=== PATIENT | male | born 1960 | race American Indian/Alaskan Native ===

== ENCOUNTER 2019-02-10 08:17 | Emergency (ER) | payer MEDICAID ==
[2019-02-10 08:38] VITALS: BP 145/77
--- NOTE | 2019-02-10 09:40 | Emergency Department Report ---
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 Patient denies any loss of consciousness after incident and was able to get up. He denies inability to walk. He states that he just moved over this [place] and would like a referral for urology for aches kidney stones, neurologist and family practice. ED Past Medical Hx - Past Medical History Previous Medical History?: Yes Hx Hypertension: Yes Hx Diabetes: Yes Hx Psychiatric Treatment: Yes (anxiety) Additional medical history: high cholesterol. BPH - Surgical History Past Surgical History?: Yes Additional Surgical History: spinal - Social History Smoking Status: Current Every Day Smoker Substance Use Type: Alcohol - Medications Home Medications: Home Medications Medication Instructions Recorded Confirmed Last Taken Type Cyclobenzaprine [Flexeril] 10 mg PO QHS PRN #15 tablet 02/10/19 Unknown Rx Ibuprofen [Motrin] 800 mg PO Q8HR #20 tablet 02/10/19 Unknown Rx Lidocaine [Lidocaine Cream] 1 applic TP BID #4 cream..g. 02/10/19 Unknown Rx ED Review of Systems ROS: Stated complaint: FALL/LOWER BACK PAIN Other details as noted in HPI Comment: All other systems reviewed and negative Physical Exam - Physical Exam Vital Signs: Vital Signs 02/10/19 08:36 Temperature 97.8 F Pulse Rate 76 Respiratory 16 Rate Blood Pressure 145/77 O2 Sat by Pulse 99 Oximetry Physical Exam: GENERAL: Alert and oriented x3, no apparent distress, Normal Gait, atraumatic. HEAD: Head is normocephalic and a-traumatic. NECK: Supple. Non edematous, No lymphadenopathy or thyromegaly. No C-spine tenderness, full range of motion LUNGS: Symetrical with respiration, No wheezing, no rales or crackles, CTAB. HEART: S1, S2 present, regular rate and rhythm without murmur, no rubs, no gallops. Non tender to palpation BACK: Full range of motion, no spinal tenderness, Tenderness to palpation of the trapezius muscles and latissimus dorsi muscles of the back EXTREMITIES/MUSCULOSKELETAL: No cyanosis, clubbing, rash, lesions or edema. Full ROM bilaterally. UE/LE Pulses 2+ bilaterally. LE and UE 5+ strength bilaterally, NEUROLOGIC: The patient is cooperative with no focal neurologic deficits. SKIN: Warm and dry, No lesions, No ulceration or induration present. ED Course Vital Signs 02/10/19 08:36 Temperature 97.8 F Pulse Rate 76 Respiratory 16 Rate Blood Pressure 145/77 O2 Sat by Pulse 99 Oximetry ED Medical Decision Making - Medical Decision Making 59-year-old male presents to ED with lower back muscle strain ED course: Vital signs are normal patient is in no acute distress Discussed with patient follow-up with primary care physician. Discussed the patient and take medications as prescribed. Patient has no neurological deficit. Patient is alert and oriented 3 and understands all instructions given. Discussed drowsiness effect of Flexeril makes her drowsy and not to operate machinery while taking flexeril Critical care attestation.: If time is entered above; I have spent that time in minutes in the direct care of this critically ill patient, excluding procedure time. ED Disposition Clinical Impression: Lumbar radiculopathy, Muscle strain Disposition: - TO HOME OR SELFCARE Is pt being admited?: No Does the pt Need Aspirin: No Condition: Stable Instructions: Muscle Strain (ED), Musculoskeletal Pain (ED) Additional Instructions: Make sure to follow up with the primary care physician as discussed. Take all your medications as you've been prescribed. If you have any worsening symptoms or develop new symptoms please return to ED immediately. Prescriptions: Cyclobenzaprine [Flexeril] 10 mg PO QHS PRN #15 tablet PRN Reason: Muscle Spasm Lidocaine [Lidocaine Cream] 1 applic TP BID #4 cream..g. Ibuprofen [Motrin] 800 mg PO Q8HR #20 tablet Referrals: MARYSOL WOLF MD [Staff Physician] - 3-5 Days SETH JAMES MD [Referring] - 3-5 Days KILEY AUGUSTINE MD [Staff Physician] - 3-5 Days ELPIDIO CABA MD [Staff Physician] - 3-5 Days [facility] [facility] [Provider Group] - 3-5 Days Forms: Work/School Release Form(ED) Time of Disposition: 09:46
[2019-02-10] MEDS ORDERED: TORADOL IM ONE (10:09)
[2019-02-10] MEDS ORDERED: TORADOL ONE (10:13)
== END 2019-02-10 10:14 | disposition home or self-care (01) ==
LOC: ED 08:17
DX: S39.012A Strain of muscle, fascia and tendon of lower back, initial encounter (principal); M54.12 Radiculopathy, cervical region; F17.200 Nicotine dependence, unspecified, uncomplicated; I10 Essential (primary) hypertension; E11.9 Type 2 diabetes mellitus without complications; E78.00 Pure hypercholesterolemia, unspecified; W01.198A Fall on same level from slipping, tripping and stumbling with subsequent striking against other object, initial encounter; Y93.89 Activity, other specified; Y92.69 Other specified industrial and construction area as the place of occurrence of the external cause; Y99.8 Other external cause status
CPT/HCPCS: 96372; 99282; J1885

== ENCOUNTER 2019-03-14 10:28 | Day surgery (SDC) | payer MEDICAID ==
[~2019-03-14 10:28] MED LIST: ANCEF/STERILE WATER 2 GM/20 ML IV NR
--- NOTE | 2019-03-14 12:08 | Anesthesia Day of Surgery ---
Anesthesia Day of Surgery - Day of Surgery Patient Examined: Yes Patient H&P Reviewed: Yes Patient is NPO: Yes
--- NOTE | 2019-03-14 12:08 | Anesthesia Consultation ---
Anesthesia Consult and Med Hx Date of service: 03/14/19 - Airway Anesthetic Teeth Evaluation: Good ROM Head & Neck: Adequate Mental/Hyoid Distance: Adequate Intubation Access Assessment: Good - Pulmonary Exam CTA: Yes - Cardiac Exam Cardiac Exam: RRR - Pre-Operative Health Status ASA Pre-Surgery Classification: ASA2 Proposed Anesthetic Plan: General (Pt with HTN,DM, Smoker-PPD for GA for lithotripsy) - Pulmonary Hx Smoking: Yes (1 PPD X 20 YRS) Hx Sleep Apnea: No ([place] PRE SCREEN HIGH RISK) - Cardiovascular System Hx Hypertension: Yes (X 5 YRS) - Central Nervous System Hx Back Pain: Yes (CHRONIC) - Other Systems Hx Cancer: No
[2019-03-14] MEDS ORDERED: ZOFRAN IV PRN (12:11)
[2019-03-14] MEDS ORDERED: DILAUDID IV PRN (12:11)
[2019-03-14] MEDS ORDERED: D50W (25GM) Syringe IV ONE ×5 (12:50→16:30)
[2019-03-14] MEDS ORDERED: VERSED IV NR (13:00)
[2019-03-14] MEDS ORDERED: NACL 0.9% 1000 ML 1,000 ML IV SCH (13:00)
[2019-03-14] MEDS ORDERED: PEPCID PO NR (13:00)
[2019-03-14] MEDS ORDERED: SUBLIMAZE ONE (13:53)
[2019-03-14] MEDS ORDERED: DIPRIVAN 10 MG/ML IV ONE ×2 (13:54→14:35)
[2019-03-14] MEDS ORDERED: WATER FOR IRRIG STERILE IR ONE (14:15)
[2019-03-14] MEDS ORDERED: OMNIPAQUE (300 MG) IR ONE (14:15)
[2019-03-14] MEDS ORDERED: DECADRON ONE (15:36)
[2019-03-14] MEDS ORDERED: ZOFRAN ONE (15:36)
[2019-03-14] MEDS ORDERED: XYLOCAINE MPF 2% ONE (15:36)
[2019-03-14] MEDS ORDERED: TORADOL ONE (15:37)
[2019-03-14] MEDS ORDERED: ROBINUL ONE (15:37)
--- NOTE | 2019-03-14 15:46 | Short Stay Summary ---
Short Stay Documentation Date of service: 03/14/19 - History H&P: obtained from office - Allergies and Medications Current Medications: Allergies No Known Allergies Allergy (Verified 03/07/19 09:18) Home Medications Medication Instructions Recorded Confirmed Last Taken Type AtorvaSTATin [Lipitor] 40 mg PO QHS 03/07/19 03/14/19 03/14/19 07:00 History Clarispray 2 spray INHALATION DAILY 03/07/19 Unknown History Dutasteride [Avodart] 0.5 mg PO DAILY 03/07/19 03/14/19 03/14/19 07:00 History Escitalopram [Lexapro] 10 mg PO DAILY 03/07/19 03/14/19 03/14/19 07:00 History Gabapentin [Neurontin] 800 mg PO TID 03/07/19 03/14/19 03/14/19 07:00 History Glimepiride [Amaryl] 4 mg PO QAM 03/07/19 03/14/19 03/14/19 07:00 History HYDROcodone/APAP 10-325 [[place] 1 each PO Q6HR PRN 03/07/19 03/14/19 03/13/19 21:00 History 10/325] Ibuprofen [Motrin] 800 mg PO PRN PRN 03/07/19 03/14/19 03/05/19 07:00 History Lisinopril [Zestril TAB] 40 mg PO QDAY 03/07/19 03/14/19 03/14/19 07:00 History Metformin HCl [metFORMIN] 1,000 mg PO BID 03/07/19 03/14/19 03/14/19 07:00 History QUEtiapine [SEROquel] 300 mg PO DAILY 03/07/19 03/14/19 03/14/19 09:00 History lamoTRIgine [Lamictal] 50 mg PO BID 03/07/19 03/14/19 03/14/19 07:00 History Active Medications Cefazolin Sodium (Ancef/Sterile Water 2 Gm/20 Ml) 2 gm IV PREOP NR Stop: 03/14/19 23:59 Famotidine (Pepcid) 20 mg PO PREOP NR Stop: 03/14/19 20:00 Last Admin: 03/14/19 13:00 Dose: 20 mg Documented by: Hydromorphone HCl (Dilaudid) 0.5 mg IV Q10MIN PRN PRN Reason: Pain , Severe (7-10) Stop: 03/14/19 20:00 Sodium Chloride (Nacl 0.9% 1000 Ml) 1,000 mls @ 100 mls/hr IV DIRECT TEO Last Admin: 03/14/19 12:55 Dose: 100 mls/hr Documented by: Midazolam HCl (Versed) 2 mg IV PREOP NR Stop: 03/14/19 23:59 Last Admin: 03/14/19 14:11 Dose: 2 mg Documented by: Ondansetron HCl (Zofran) 4 mg IV ONCE PRN PRN Reason: Nausea And Vomiting Stop: 03/14/19 20:00 - Brief post op/procedure progress note Date of procedure: 03/14/19 Pre-op diagnosis: bilat renal stones Post-op diagnosis: other (urethral stricture) Procedure: cysto, urethral dilation, ESWL, rt stent, mancuso Anesthesia: GETA Surgeon: ELPIDIO CABA Pathology: none Condition: stable - Hospital course Hospital course: bactrim, norco, post op info on chart - Disposition Condition at discharge: Stable Disposition: DC-01 TO HOME OR SELFCARE Short Stay Discharge Plan Follow up with: ISAMAR CARR MD [Primary Care Provider] - 7 Days
[2019-03-14] MEDS ORDERED: D50W (25GM) Vial IV ONE (16:09)
[2019-03-14] MEDS ORDERED: NORCO 5/325 ONE (16:37)
[2019-03-14] MEDS ORDERED: NORCO 5/325 PO ONE (17:00)
[2019-03-14 18:24] VITALS: BP 128/67
--- NOTE | 2019-03-14 18:32 | Operative Report ---
PREOPERATIVE DIAGNOSES: Right bilateral ureteral stones, right renal colic. POSTOPERATIVE DIAGNOSES: Right bilateral ureteral stones, right renal colic, urethral stricture. PROCEDURE: Cystoscopy; urethral dilation; right retrograde pyelogram; double-J stent (6-[place]izen [place] 26 cm with an external string); right extracorporal shockwave lithotripsy, staged procedure. SURGEON: Kirit Sykes MD ANESTHESIA: General. ESTIMATED BLOOD LOSS: Minimal. FLUIDS: Crystalloid. COMPLICATIONS: No complications. INDICATIONS: This 59-year-old gentleman seen in the office with flank pain. CT of abdomen and pelvis revealed bilateral kidney stones, largest on the right side. He is symptomatic on the right side. He also has a history of degenerative joint disease of his spine, sees a pain management physician. We discussed options. He agreed to proceed with surgical intervention procedure. The patient also states he always needs a stent to pass his fragments. DESCRIPTION OF PROCEDURE: The patient was taken to the operative suite, placed in a supine position. After adequate general anesthesia, placed in a dorsal lithotomy position, prepped and draped in a sterile fashion. Ureteroscopy was performed. The patient had diffuse stenosis of his urethra. 0.035 Glidewire was placed under fluoroscopic guidance. Urethral dilatation to 20-[place]izen [place] with the blue dilators were performed. Cystoscopy was then performed. His prostate displayed some moderate trilobar obstruction. His bladder, no tumors or stones were noted. Both ureteral orifices in normal position. Right retrograde pyelogram was obtained with an 8 [place] Cameron catheter and 8 mL of contrast. No filling defects or obstruction in the ureter, obvious 7 mm stone in the lower pole of kidney. A 6-[place]izen [place] 26 cm double-J stent with an external string, Clemet[place] catheter was advanced over the wire, 16-Citizen [place] kaw tip and the string was external. The bladder was drained and cystogram was obtained with dye to confirm adequate position of the Clement. The patient was placed in a supine position. His 7 mm kidney stone was localized in 2 planes. Extracorporal shock wave lithotripsy was administered with a maximum kV of 7 and 2500 shocks. Five-minute renal pause after 200 shocks was performed. Adequate fragmentation could be appreciated. He was extubated and taken to recovery room. Rectal exam was benign. He will go home on [place] and Bactrim. JOB# [id number] MAUREEN/PHONG
== END 2019-03-14 17:40 | disposition home or self-care (01) ==
LOC: OR 10:28
PROVIDERS: ATTEND Urology
DX: N20.2 Calculus of kidney with calculus of ureter (principal); N35.819 Other urethral stricture, male, unspecified site; F17.210 Nicotine dependence, cigarettes, uncomplicated; E78.00 Pure hypercholesterolemia, unspecified; I10 Essential (primary) hypertension; K21.9 Gastro-esophageal reflux disease without esophagitis; F31.9 Bipolar disorder, unspecified; F41.9 Anxiety disorder, unspecified; Z98.890 Other specified postprocedural states; Z87.440 Personal history of urinary (tract) infections; Z90.49 Acquired absence of other specified parts of digestive tract; Z79.899 Other long term (current) drug therapy; Z79.84 Long term (current) use of oral hypoglycemic drugs
CPT/HCPCS: 50590; 52332; 74420; 82962; A4217; C1726; C1769; C2617; J0690; J1100; J1170; J1885; J2250; J2405; J2704; J3010; J7030; Q9967

== ENCOUNTER 2019-03-16 14:32 | Emergency (ER) | payer MEDICAID ==
--- NOTE | 2019-03-16 15:18 | Emergency Department Report ---
HPI - General Chief Complaint: Extremity Injury, Upper Time Seen by Provider: 03/16/19 15:00 - HPI HPI: Room 22 The patient is a 59-year-old male presenting with a chief complaint of left hand swelling. The patient had lithotripsy performed by Dr. Sykes 2 days ago. The patient states he had an IV in the dorsum of his left hand. Patient states the day of the surgery is left hand was fine but yesterday he developed pain and swelling of the left hand radiating up to the midforearm. Patient denies history of fever. Patient gives his pain a score of 8/10. The patient informed Dr. Sykes who instructed the patient to come to the ED. Location: Left hand Duration: [See above] Quality: [See above] Severity: [See above] Modifying factors: [see above] Context: [see above] Mode of transportation: [not driving] ED Past Medical Hx - Past Medical History Previous Medical History?: Yes Hx Hypertension: Yes (X 5 YRS) Hx Diabetes: Yes Hx GERD: Yes Hx Kidney Stones: Yes Hx Psychiatric Treatment: Yes (anxiety) Hx Tuberculosis: Yes (POSITIVE SKIN TEST,TOOK TX, NEG CXR -20 YRS AGO) Additional medical history: high cholesterol. BPH - Surgical History Past Surgical History?: Yes Hx Cholecystectomy: Yes Additional Surgical History: Cervical spine surgery - Family History Family history: no significant - Social History Smoking Status: Current Every Day Smoker (1/2 pack per day) Substance Use Type: None (denies illicit drug use), Alcohol (occasional) - Medications Home Medications: Home Medications Medication Instructions Recorded Confirmed Last Taken Type AtorvaSTATin [Lipitor] 40 mg PO QHS 03/07/19 03/14/19 03/14/19 07:00 History Clarispray 2 spray INHALATION DAILY 03/07/19 Unknown History Dutasteride [Avodart] 0.5 mg PO DAILY 03/07/19 03/14/19 03/14/19 07:00 History Escitalopram [Lexapro] 10 mg PO DAILY 03/07/19 03/14/19 03/14/19 07:00 History Gabapentin [Neurontin] 800 mg PO TID 03/07/19 03/14/19 03/14/19 07:00 History Glimepiride [Amaryl] 4 mg PO QAM 03/07/19 03/14/19 03/14/19 07:00 History HYDROcodone/APAP 10-325 [[place] 1 each PO Q6HR PRN 03/07/19 03/14/19 03/13/19 21:00 History 10/325] Ibuprofen [Motrin] 800 mg PO PRN PRN 03/07/19 03/14/19 03/05/19 07:00 History Lisinopril [Zestril TAB] 40 mg PO QDAY 03/07/19 03/14/19 03/14/19 07:00 History Metformin HCl [metFORMIN] 1,000 mg PO BID 03/07/19 03/14/19 03/14/19 07:00 History QUEtiapine [SEROquel] 300 mg PO DAILY 03/07/19 03/14/19 03/14/19 09:00 History lamoTRIgine [Lamictal] 50 mg PO BID 03/07/19 03/14/19 03/14/19 07:00 History HYDROcodone/APAP 5-325 [[place] 1 - 2 each PO Q6HR PRN #14 tablet 03/16/19 Unknown Rx 5/325] Ibuprofen [Motrin 800 MG tab] 800 mg PO Q8HR PRN #20 tablet 03/16/19 Unknown Rx ED Review of Systems ROS: Stated complaint: FT HAND SWOLLEN Other details as noted in HPI Constitutional: denies: fever Eyes: denies: eye pain ENT: denies: throat pain Respiratory: no symptoms reported Cardiovascular: denies: chest pain Endocrine: no symptoms reported Gastrointestinal: denies: abdominal pain Neurological: denies: headache Physical Exam - Physical Exam Physical Exam: GENERAL: The patient is well-developed well-nourished male lying on stretcher not appearing to be in acute distress. [] HEENT: Normocephalic. Atraumatic. Extraocular motions are intact. Patient has moist mucous membranes. NECK: Supple. Trachea midline CHEST/LUNGS: There is no respiratory distress noted. HEART/CARDIOVASCULAR: Regular. There is no tachycardia. 2+ left radial pulse SKIN: There is moderate edema to the left hand and distal half of left forearm. There is no crepitus NEURO: The patient is awake, alert, and oriented. The patient is cooperative. The patient has normal speech MUSCULOSKELETAL: There is no evidence of acute injury. LYMPHATIC: There is no left axillary tenderness or lymphadenopathy ED Medical Decision Making - Lab Data Result diagrams: 03/16/19 15:10 03/16/19 15:10 - Radiology Data Radiology results: report reviewed (left upper extremity Doppler), image reviewe d (left upper extremity Doppler) [facility] [address] [place] [address] Vascular Lab Report Signed Patient: JUNIOR ADAME MR#: [id number] 9 : 1960 Acct:[id number] Age/Sex: 59 / M ADM Date: 03/16/19 Loc: ED Attending Dr: Ordering Physician: VANCE NAGEL MD Date of Service: 03/16/19 Procedure(s): VL venous duplex UE LT Accession Number(s): [id number] cc: VANCE NAGEL MD Procedure: Venous ultrasound left upper extremity TECHNIQUE: 2-D imaging, pulse Doppler imaging and color flow Doppler imaging were utilized to evaluate the deep venous system of the left upper extremity. HISTORY: Pain and swelling. Evaluate for DVT COMPARISON: None FINDINGS: Visualized portions of the internal jugular vein, subclavian vein, axillary vein, brachial vein, basilic vein, radial and ulnar veins appear normal. No evidence of DVT. There is incomplete compressibility and increased echogenicity in the proximal forearm within the cephalic vein consistent with small area of superficial venous thrombosis. IMPRESSION: No evidence of DVT. Small superficial venous thrombosis visualized cephalic vein, proximal forearm. No other abnormalities are seen. This document is electronically signed by Jose A Amin MD., March 16 2019 05:45:35 PM ET Transcribed By: DFN Dictated By: JOSE A AMIN MD Electronically Authenticated By: JOSE A AMIN MD Signed Date/Time: 03/16/19 1747 DD/ 1606 TD/TT: 03/16/19 1606 - Medical Decision Making Patient states he is currently on Bactrim prescribed by his urologist after the lithotripsy. Urinalysis findings discussed with patient - Differential Diagnosis probable phlebitis, superficial venous thrombosis, DVT, infection Critical care attestation.: If time is entered above; I have spent that time in minutes in the direct care of this critically ill patient, excluding procedure time. ED Disposition Clinical Impression: Superficial venous thrombosis of left arm, UTI (urinary tract infection) Disposition: DC- TO HOME OR SELFCARE Is pt being admited?: No Does the pt Need Aspirin: No Condition: Stable Instructions: Superficial Thrombophlebitis (ED) Additional Instructions: Return to the emergency department immediately should you develop worsening symptoms, fever, inability to tolerate food or liquid or any other concerns. Prescriptions: Ibuprofen [Motrin 800 MG tab] 800 mg PO Q8HR PRN #20 tablet PRN Reason: Pain, Moderate (4-6) HYDROcodone/APAP 5-325 [[place] 5/325] 1 - 2 each PO Q6HR PRN #14 tablet PRN Reason: Pain [facility] Care [facility] - 3-5 Days PRIMARY CAREMD [Referring] - 3-5 Days Time of Disposition: 18:04
[2019-03-16] MEDS ORDERED: IBUPROFEN PO ONE (15:20)
[2019-03-16] MEDS ORDERED: NORCO 5/325 PO ONE (15:20)
[2019-03-16 15:23] LABS: Hematocrit 38.5 % (35.5-45.6); Hemoglobin 13.1 gm/dl (11.8-15.2); Mean Corpuscular HGB Conc 34 % (32-34); Mean Corpuscular Volume 92 fl (84-94); Platelet Count 186 K/mm3 (140-440); Red Blood Count 4.18 M/mm3 (3.65-5.03); Red Cell Distribution Width 13.6 % (13.2-15.2)
[2019-03-16 15:24] LABS: Basophils # (Auto) 0.1 K/mm3 (0.0-0.1); Basophils % (Auto) 0.9 % (0.0-1.8); Eosinophils # (Auto) 0.1 K/mm3 (0.0-0.4); Eosinophils % (Auto) 1.6 % (0.0-4.3); Lymphocytes # (Auto) 2.4 K/mm3 (1.2-5.4); Lymphocytes % (Auto) 26.2 % (13.4-35.0); Monocytes # (Auto) 0.6 K/mm3 (0.0-0.8); Monocytes % (Auto) 6.2 % (0.0-7.3)
[2019-03-16 15:33] LABS: INR 1.08 (0.87-1.13); Partial Thromboplastin Time 26.9 Sec. (24.2-36.6)
[2019-03-16 15:46] LABS: Calcium 8.9 mg/dL (8.4-10.2)
[2019-03-16 16:50] LABS: Bilirubin,Urine NEG (Negative); Blood,Urine LG (Negative); Color,Urine Amber (Yellow); Mucus,Urine 2+ /HPF; Urobilinogen,Urine < 2.0 mg/dL (<2.0)
[2019-03-16 16:51] LABS: RBC,Urine > 182.0 /HPF (0.0-6.0); WBC,Urine > 182.0 /HPF (0.0-6.0)
--- NOTE | 2019-03-16 17:47 | Vascular Lab Report ---
Procedure: Venous ultrasound left upper extremity TECHNIQUE: 2-D imaging, pulse Doppler imaging and color flow Doppler imaging were utilized to evaluat e the deep venous system of the left upper extremity. HISTORY: Pain and swelling. Evaluate for DVT COMPARISON: None FINDINGS: Visualized portions of the internal jugular vein, subclavian vein, axillary vein, brachial vein, basilic vein, radial and ulnar veins appear normal. No evidence of DVT. There is incomplete compressibility and increased echogenicity in the proximal forearm within the cep halic vein consistent with small area of superficial venous thrombosis. IMPRESSION: No evidence of DVT. Small superficial venous thrombosis visualized cephalic vein, proximal forearm. No other abnormalities are seen. This document is electronically signed by Jose A Eduardo MD., March 16 2019 05:45:35 PM ET
[2019-03-16 18:15] VITALS: BP 122/78
== END 2019-03-16 18:50 | disposition home or self-care (01) ==
LOC: ED 14:32
DX: I82.612 Acute embolism and thrombosis of superficial veins of left upper extremity (principal); N39.0 Urinary tract infection, site not specified; I10 Essential (primary) hypertension; K21.9 Gastro-esophageal reflux disease without esophagitis; E11.9 Type 2 diabetes mellitus without complications; F41.9 Anxiety disorder, unspecified; E78.00 Pure hypercholesterolemia, unspecified; F17.200 Nicotine dependence, unspecified, uncomplicated; Z87.442 Personal history of urinary calculi; Z90.49 Acquired absence of other specified parts of digestive tract; Z98.890 Other specified postprocedural states; Z79.1 Long term (current) use of non-steroidal anti-inflammatories (NSAID); Z79.899 Other long term (current) drug therapy
CPT/HCPCS: 36415; 80048; 81001; 85025; 85610; 85730; 99284

== ENCOUNTER 2019-04-29 08:29 | Emergency (ER) | payer MEDICAID ==
[2019-04-29 08:39] VITALS: BP 110/72
[2019-04-29] MEDS ORDERED: TORADOL IM ONE (09:31)
--- NOTE | 2019-04-29 09:37 | Emergency Department Report ---
ED Back Pain/Injury HPI - General Chief Complaint: Back Pain/Injury Stated Complaint: LT SIDE/BACK/LIGHT HEADED Time Seen by Provider: 04/29/19 09:21 Source: patient Limitations: No Limitations - History of Present Illness Initial Comments: 59-year-old Moroc[place] male presents to the emergency room complaining of left side and left side back pain after suffering a ground-level fall yesterday. Patient reportedly took ibuprofen 800 mg about 9 PM last night without much resolution of pain. Patient does have a past medical history of hypertension diabetes cholesterol BPH bipolar kidney stones and chronic pain with neck and lower back bulging and herniated disks as well as surgical history of spine surgery kidney surgery. Patient denies any bowel or urinary incontinence. P atlydia has no known drug allergies. MD Complaint: fall Onset/Timin -: days(s) Similar Symptoms Previously: Yes Place: home Consistency: constant Improves With: none Worsens With: movement Context: fall Associated Symptoms: denies other symptoms. denies: numbness, difficulty walking, difficulty urinating, incontinence - Related Data Home Medications Medication Instructions Recorded Confirmed Last Taken AtorvaSTATin [Lipitor] 40 mg PO QHS 03/07/19 03/14/19 03/14/19 07:00 Clarispray 2 spray INHALATION DAILY 03/07/19 Unknown Dutasteride [Avodart] 0.5 mg PO DAILY 03/07/19 03/14/19 03/14/19 07:00 Escitalopram [Lexapro] 10 mg PO DAILY 03/07/19 03/14/19 03/14/19 07:00 Gabapentin [Neurontin] 800 mg PO TID 03/07/19 03/14/19 03/14/19 07:00 Glimepiride [Amaryl] 4 mg PO QAM 03/07/19 03/14/19 03/14/19 07:00 HYDROcodone/APAP 10-325 [[place] 1 each PO Q6HR PRN 03/07/19 03/14/19 03/13/19 21:00 10/325] Ibuprofen [Motrin] 800 mg PO PRN PRN 03/07/19 03/14/19 03/05/19 07:00 Lisinopril [Zestril TAB] 40 mg PO QDAY 03/07/19 03/14/19 03/14/19 07:00 Metformin HCl [metFORMIN] 1,000 mg PO BID 03/07/19 03/14/19 03/14/19 07:00 QUEtiapine [SEROquel] 300 mg PO DAILY 03/07/19 03/14/19 03/14/19 09:00 lamoTRIgine [Lamictal] 50 mg PO BID 03/07/19 03/14/19 03/14/19 07:00 Previous Rx's Medication Instructions Recorded Last Taken Type HYDROcodone/APAP 5-325 [[place] 1 - 2 each PO Q6HR PRN #14 tablet 03/16/19 Unknown Rx 5/325] Ibuprofen [Motrin 800 MG tab] 800 mg PO Q8HR PRN #20 tablet 03/16/19 Unknown Rx Allergies Allergy/AdvReac Type Severity Reaction Status Date / Time No Known Allergies Allergy Verified 03/07/19 09:18 ED Review of Systems ROS: Stated complaint: LT SIDE/BACK/LIGHT HEADED Other details as noted in HPI ED Past Medical Hx - Past Medical History Previous Medical History?: Yes Hx Hypertension: Yes (X 5 YRS) Hx Diabetes: Yes Hx GERD: Yes Hx Kidney Stones: Yes Hx Psychiatric Treatment: Yes (anxiety) Hx Tuberculosis: Yes (POSITIVE SKIN TEST,TOOK TX, NEG CXR -20 YRS AGO) Hx HIV: No Additional medical history: high cholesterol. BPH - Surgical History Past Surgical History?: Yes Hx Cholecystectomy: Yes Additional Surgical History: Cervical spine surgery - Social History Smoking Status: Current Every Day Smoker Substance Use Type: None - Medications Home Medications: Home Medications Medication Instructions Recorded Confirmed Last Taken Type AtorvaSTATin [Lipitor] 40 mg PO QHS 03/07/19 03/14/19 03/14/19 07:00 History Clarispray 2 spray INHALATION DAILY 03/07/19 Unknown History Dutasteride [Avodart] 0.5 mg PO DAILY 03/07/19 03/14/19 03/14/19 07:00 History Escitalopram [Lexapro] 10 mg PO DAILY 03/07/19 03/14/19 03/14/19 07:00 History Gabapentin [Neurontin] 800 mg PO TID 03/07/19 03/14/19 03/14/19 07:00 History Glimepiride [Amaryl] 4 mg PO QAM 03/07/19 03/14/19 03/14/19 07:00 History HYDROcodone/APAP 10-325 [[place] 1 each PO Q6HR PRN 03/07/19 03/14/19 03/13/19 21:00 History 10/325] Ibuprofen [Motrin] 800 mg PO PRN PRN 03/07/19 03/14/19 03/05/19 07:00 History Lisinopril [Zestril TAB] 40 mg PO QDAY 03/07/19 03/14/19 03/14/19 07:00 History Metformin HCl [metFORMIN] 1,000 mg PO BID 03/07/19 03/14/19 03/14/19 07:00 History QUEtiapine [SEROquel] 300 mg PO DAILY 03/07/19 03/14/19 03/14/19 09:00 History lamoTRIgine [Lamictal] 50 mg PO BID 03/07/19 03/14/19 03/14/19 07:00 History HYDROcodone/APAP 5-325 [[place] 1 - 2 each PO Q6HR PRN #14 tablet 03/16/19 Unknown Rx 5/325] Ibuprofen [Motrin 800 MG tab] 800 mg PO Q8HR PRN #20 tablet 03/16/19 Unknown Rx ED Physical Exam - General Limitations: No Limitations ED Course Vital Signs 04/29/19 08:37 Temperature 97.5 F L Pulse Rate 98 H Respiratory 20 Rate Blood Pressure 110/72 O2 Sat by Pulse 100 Oximetry ED Medical Decision Making - Medical Decision Making 59-year-old Moroc[place] male presents to the emergency room complaining of left side and left side back pain after suffering a ground-level fall yesterday. Patient reportedly took ibuprofen 800 mg about 9 PM last night without much resolution of pain. Patient does have a past medical history of hypertension diabetes cholesterol BPH bipolar kidney stones and chronic pain with neck and lower back bulging and herniated disks as well as surgical history of spine surgery kidney surgery. Patient denies any bowel or urinary incontinence. Patient has no known drug allergies. She'll be given a Toradol injection of 30 mg IM. Provider looked up patient in [place] where. Lasix narcotics were given out on 04/10/2019. Patient will be discharged home with a referral to pain management. Critical care attestation.: If time is entered above; I have spent that time in minutes in the direct care of this critically ill patient, excluding procedure time. ED Disposition Clinical Impression: Back pain, Neck pain on left side Disposition: DC-01 TO HOME OR SELFCARE Is pt being admited?: No Does the pt Need Aspirin: No Condition: Stable Instructions: Chronic Back Pain (ED) Additional Instructions: Patient is to continue taking his chronic pain medications. Referrals: DEREK WILLIAMSON MD [Primary Care Provider] - 3-5 Days [facility] [Provider Group] - 3-5 Days PAIN CARE, [facility] [Provider Group] - 3-5 Days
== END 2019-04-29 10:06 | disposition home or self-care (01) ==
LOC: ED 08:29
DX: M54.89 Other dorsalgia (principal); M54.2 Cervicalgia; I10 Essential (primary) hypertension; E11.9 Type 2 diabetes mellitus without complications; K21.0 Gastro-esophageal reflux disease with esophagitis; F41.9 Anxiety disorder, unspecified; E78.00 Pure hypercholesterolemia, unspecified; F17.200 Nicotine dependence, unspecified, uncomplicated; Z90.49 Acquired absence of other specified parts of digestive tract; Z79.899 Other long term (current) drug therapy; W18.30XA Fall on same level, unspecified, initial encounter; Y93.89 Activity, other specified; Y92.098 Other place in other non-institutional residence as the place of occurrence of the external cause; Y99.8 Other external cause status
CPT/HCPCS: 96372; 99282; J1885

== ENCOUNTER 2019-07-22 17:23 | Inpatient (IN) | payer MEDICAID ==
--- NOTE | 2019-07-22 18:21 | Event Note ---
ED Screening Note Date of service: 07/22/19 Time: 18:16 ED Screening Note: 56 y o male with pmh od htn on meds presents cc of dizziness and low blood pressure x last night also cc of flank pain and weakness PMH: DM, BPH, HTN This initial assessment/diagnostic orders/clinical plan/treatment(s) is/are subject to change based on patients health status, clinical progression and re- assessment by fellow clinical providers in the ED. Further treatment and workup at subsequent clinical providers discretion. Patient/guardian urged not to elope from the ED as their condition may be serious if not clinically assessed and managed. Initial orders include: labs, ua,
[2019-07-22 19:05] LABS: Basophils # (Auto) 0.1 K/mm3 (0.0-0.1); Basophils % (Auto) 0.6 % (0.0-1.8); Eosinophils # (Auto) 0.1 K/mm3 (0.0-0.4); Eosinophils % (Auto) 1.4 % (0.0-4.3); Hematocrit 44.3 % (35.5-45.6); Hemoglobin 15.1 gm/dl (11.8-15.2); Lymphocytes # (Auto) 1.5 K/mm3 (1.2-5.4); Mean Corpuscular HGB Conc 34 % (32-34); Mean Corpuscular Volume 93 fl (84-94); Monocytes # (Auto) 0.8 K/mm3 (0.0-0.8); Monocytes % (Auto) 9.1 % (0.0-7.3); Platelet Count 232 K/mm3 (140-440); Red Blood Count 4.75 M/mm3 (3.65-5.03); Red Cell Distribution Width 14.5 % (13.2-15.2)
[2019-07-22 19:06] LABS: Alanine Aminotransferase 25 units/L (7-56); Albumin 4.4 g/dL (3.9-5); BUN/Creatinine Ratio 10; Blood Urea Nitrogen 30 mg/dL (9-20); Hemolysis Index 15
[2019-07-22 19:15] LABS: Bilirubin,Urine NEG (Negative); Blood,Urine MOD (Negative)
[2019-07-22 19:21] LABS: Color,Urine Yellow (Yellow); WBC,Urine > 182.0 /HPF (0.0-6.0)
[2019-07-22] MEDS ORDERED: SODIUM CHLORIDE 0.9% 1000 ML 1,000 ML IV ONE (20:48)
[2019-07-22] MEDS ORDERED: MECLIZINE 25 MG TAB PO ONE (20:49)
[2019-07-22] MEDS ORDERED: cefTRIAXone/NS 1 GM/50 ML 1 GM/50 ML BAG IV ONE (20:49)
[2019-07-22] MEDS ORDERED: traMADol 50 MG TAB PO ONE (20:54)
[2019-07-22] MEDS ORDERED: ACETAMINOPHEN 500 MG TAB PO ONE (20:54)
--- NOTE | 2019-07-22 21:44 | XRay Report ---
CHEST 1 VIEW INDICATION: CHEST PAIN COMPARISON: None FINDINGS: Support devices: None Heart: Normal Lungs/Pleura: No acute pulmonary or pleural findings. IMPRESSION: 1. No acute disease Signer Name: Curt Servin MD Signed: 07/22/2019 9:39 PM Workstation Name: [id number]
--- NOTE | 2019-07-23 01:14 | Cat Scan Report ---
CT HEAD WITHOUT CONTRAST INDICATION / CLINICAL INFORMATION: HEADACHE. Dizziness. TECHNIQUE: All CT scans at this location are performed using CT dose reduction for ALARA by means of automated e xposure control. COMPARISON: None available. FINDINGS: HEMORRHAGE: None. EXTRA-AXIAL SPACES: Normal in size and morphology for the patient's age. VENTRICULAR SYSTEM: Normal in size and morphology for the patient's age. CEREBRAL PARENCHYMA: No significant abnormality. No acute territorial infarct. MIDLINE SHIFT OR HERNIATION: None. CEREBELLUM / BRAINSTEM: No significant abnormality. ORBITS: Normal as visualized. SOFT TISSUES of HEAD: No significant abnormality. CALVARIUM: No significant abnormality. PARANASAL SINUSES / MASTOID AIR CELLS: Normal as visualized. ADDITIONAL FINDINGS: None. IMPRESSION: 1. No acute intracranial abnormality. Signer Name: Kimberlyn May MD Signed: 07/23/2019 1:10 AM Workstation Name: [id number]
--- NOTE | 2019-07-23 01:29 | Emergency Department Report ---
<RAYNA ADAMS - Last Filed: 07/23/19 01:25> ED General Adult HPI - General Chief complaint: Dizziness Stated complaint: DIZZINESS/BACK PAIN Source: patient Mode of arrival: Ambulatory Limitations: No Limitations - History of Present Illness Initial comments: Patient is a 59-year-old -Tai[place]ese male with a history of hypertension, BPH, lhw-ahubktn-hickyuklx diabetes, hyperlipidemia who presents to the ED with with complaints of acute onset persistent lightheadedness, headache, generalized weakness and fatigue and diffuse body aches for the last 12 hours. Patient also states that he has had low blood pressure earlier in the day. Patient denies syncope, chest pain, shortness of breath, cough, fever, chills, abdominal pain, nausea, vomiting, diarrhea, change in vision, neck pain, testicular pain or sore throat. MD Complaint: Lightheadedness; headache, generalized fatigue -: Sudden, hour(s) (12) Location: head Radiation: non-radiation Severity scale (0 -10): 4 Quality: aching, dull Consistency: constant Improves with: none Worsens with: movement Associated Symptoms: denies other symptoms, headaches, loss of appetite, malaise, weakness. denies: confusion, chest pain, cough, diaphoresis, fever/chills, nausea/vomiting, rash, seizure, shortness of breath, syncope, other Treatments Prior to Arrival: none - Related Data Home Medications Medication Instructions Recorded Confirmed Last Taken AtorvaSTATin [Lipitor] 40 mg PO QHS 03/07/19 03/14/19 03/14/19 07:00 Clarispray 2 spray INHALATION DAILY 03/07/19 Unknown Dutasteride [Avodart] 0.5 mg PO DAILY 03/07/19 03/14/19 03/14/19 07:00 Escitalopram [Lexapro] 10 mg PO DAILY 03/07/19 03/14/19 03/14/19 07:00 Gabapentin [Neurontin] 800 mg PO TID 03/07/19 03/14/19 03/14/19 07:00 Glimepiride [Amaryl] 4 mg PO QAM 03/07/19 03/14/19 03/14/19 07:00 HYDROcodone/APAP 10-325 [[place] 1 each PO Q6HR PRN 03/07/19 03/14/19 03/13/19 21:00 10/325] Ibuprofen [Motrin] 800 mg PO PRN PRN 03/07/19 03/14/19 03/05/19 07:00 Lisinopril [Zestril TAB] 40 mg PO QDAY 03/07/19 03/14/19 03/14/19 07:00 Metformin HCl [metFORMIN] 1,000 mg PO BID 03/07/19 03/14/19 03/14/19 07:00 QUEtiapine [SEROquel] 300 mg PO DAILY 03/07/19 03/14/19 03/14/19 09:00 lamoTRIgine [Lamictal] 50 mg PO BID 03/07/19 03/14/19 03/14/19 07:00 Previous Rx's Medication Instructions Recorded Last Taken Type HYDROcodone/APAP 5-325 [[place] 1 - 2 each PO Q6HR PRN #14 tablet 03/16/19 Unknown Rx 5/325] Ibuprofen [Motrin 800 MG tab] 800 mg PO Q8HR PRN #20 tablet 03/16/19 Unknown Rx Allergies Allergy/AdvReac Type Severity Reaction Status Date / Time No Known Allergies Allergy Verified 07/22/19 17:28 ED Review of Systems Constitutional: denies: chills, fever Eyes: denies: eye pain, eye discharge, vision change ENT: denies: ear pain, throat pain Respiratory: denies: cough, shortness of breath, wheezing Cardiovascular: denies: chest pain, palpitations, dyspnea on exertion, ort hopnea, edema, syncope, paroxysmal nocturnal dyspnea Endocrine: no symptoms reported Gastrointestinal: denies: abdominal pain, nausea, vomiting, diarrhea, constipation, hematemesis, melena, hematochezia Genitourinary: denies: urgency, dysuria Musculoskeletal: denies: back pain, joint swelling, arthralgia Skin: denies: rash, lesions Neurological: headache, weakness, other (lightheadedness). denies: paresthesias Psychiatric: denies: anxiety, depression Hematological/Lymphatic: denies: easy bleeding, easy bruising ED Past Medical Hx - Past Medical History Previous Medical History?: Yes Hx Hypertension: Yes (X 5 YRS) Hx Diabetes: Yes Hx GERD: Yes Hx Kidney Stones: Yes Hx Psychiatric Treatment: Yes (anxiety) Hx Tuberculosis: Yes (POSITIVE SKIN TEST,TOOK TX, NEG CXR -20 YRS AGO) Hx HIV: No Additional medical history: high cholesterol. BPH - Surgical History Past Surgical History?: Yes Hx Cholecystectomy: Yes Additional Surgical History: Cervical spine surgery - Social History Smoking Status: Never Smoker Substance Use Type: None - Medications Home Medications: Home Medications Medication Instructions Recorded Confirmed Last Taken Type AtorvaSTATin [Lipitor] 40 mg PO QHS 03/07/19 03/14/19 03/14/19 07:00 History Clarispray 2 spray INHALATION DAILY 03/07/19 Unknown History Dutasteride [Avodart] 0.5 mg PO DAILY 03/07/19 03/14/19 03/14/19 07:00 History Escitalopram [Lexapro] 10 mg PO DAILY 03/07/19 03/14/19 03/14/19 07:00 History Gabapentin [Neurontin] 800 mg PO TID 03/07/19 03/14/19 03/14/19 07:00 History Glimepiride [Amaryl] 4 mg PO QAM 03/07/19 03/14/19 03/14/19 07:00 History HYDROcodone/APAP 10-325 [[place] 1 each PO Q6HR PRN 03/07/19 03/14/19 03/13/19 21:00 History 10/325] Ibuprofen [Motrin] 800 mg PO PRN PRN 03/07/19 03/14/19 03/05/19 07:00 History Lisinopril [Zestril TAB] 40 mg PO QDAY 03/07/19 03/14/19 03/14/19 07:00 History Metformin HCl [metFORMIN] 1,000 mg PO BID 03/07/19 03/14/19 03/14/19 07:00 History QUEtiapine [SEROquel] 300 mg PO DAILY 03/07/19 03/14/19 03/14/19 09:00 History lamoTRIgine [Lamictal] 50 mg PO BID 03/07/19 03/14/19 03/14/19 07:00 History HYDROcodone/APAP 5-325 [[place] 1 - 2 each PO Q6HR PRN #14 tablet 03/16/19 Unknown Rx 5/325] Ibuprofen [Motrin 800 MG tab] 800 mg PO Q8HR PRN #20 tablet 03/16/19 Unknown Rx ED Physical Exam - General Limitations: No Limitations General appearance: alert, in no apparent distress - Head Head exam: Present: atraumatic, normocephalic, normal inspection - Eye Eye exam: Present: normal appearance, PERRL, EOMI Pupils: Present: normal accommodation - ENT ENT exam: Present: normal exam, normal orophraynx, mucous membranes moist, TM's normal bilaterally, normal external ear exam - Neck Neck exam: Present: normal inspection, full ROM. Absent: tenderness, meningismus, lymphadenopathy, thyromegaly - Respiratory Respiratory exam: Present: normal lung sounds bilaterally. Absent: respiratory distress, wheezes, stridor, chest wall tenderness, accessory muscle use, decreased breath sounds, prolonged expiratory - Cardiovascular Cardiovascular Exam: Present: normal rhythm, tachycardia, normal heart sounds. Absent: systolic murmur, diastolic murmur, rubs, gallop - GI/Abdominal GI/Abdominal exam: Present: soft, normal bowel sounds. Absent: tenderness, guarding, rebound, hyperactive bowel sounds, hypoactive bowel sounds, organomegaly, mass - Rectal Rectal exam: Present: deferred - Extremities Exam Extremities exam: Present: normal inspection - Back Exam Back exam: Present: normal inspection - Neurological Exam Neurological exam: Present: alert, oriented X3 - Psychiatric Psychiatric exam: Present: normal affect, normal mood - Skin Skin exam: Present: warm, dry, intact, normal color. Absent: rash ED Course - Reevaluation(s) Reevaluation #1: 07/23/19 01:33 This is a 59-year-old -[place]ese male with a history of BPH, hypertension, chronic low back, recurrent UTIs, kidney stones, mhj-mqoxoeo-fhbcerdeh diabetes and hyperlipidemia who presented to the ED with acute onset persistent lighth eadedness, headache, generalized weakness for over 12 hours. In the ED, patient is alert and oriented 3 and is not in distress. Labs were drawn and head CT scan without contrast, chest x-ray also performed. Chest x-ray shows no acute cardiopulmonary monitors. Head CT scan without contrast shows no acute intracranial abnormalities or hemorrhage. Lab test results were reviewed and showed BUN of 30, and creatinine of 2.9 which is new finding based on the fact that patient's previous visits to this ED showed normal kidney functions. Other lab test results are nonactionable. These lab tests results were discussed with the patient were admitted to taking a lot of NSAIDs for his chronic low back pain. Patient's case was discussed with Dr. Elizalde ED attending physician work through the plan of care to admit the patient for acute renal injury or renal failure workup. I then paged and discussed the patient's case with the hospitalist physician hyperion administrator Dr. Baker who admitted the patient to the hospital. ED Medical Decision Making - Lab Data Result diagrams: 07/22/19 18:27 07/22/19 18:27 - Radiology Data Radiology results: report reviewed, image reviewed Findings [facility] [address] [place] [address] Cat Scan Report Signed Patient: JUNIOR ADAME MR#: [id number] 9 : 1960 Acct:[id number] Age/Sex: 59 / M ADM Date: 07/22/19 Loc: ED Attending Dr: Ordering Physician: LORA ARZOLA Date of Service: 07/22/19 Procedure(s): CT head/brain wo con Accession Number(s): [id number] cc: LORA ARZOLA CT HEAD WITHOUT CONTRAST INDICATION / CLINICAL INFORMATION: HEADACHE. Dizziness. TECHNIQUE: All CT scans at this location are performed using CT dose reduction for ALARA by means of automated exposure control. COMPARISON: None available. FINDINGS: HEMORRHAGE: None. EXTRA-AXIAL SPACES: Normal in size and morphology for the patient's age. VENTRICULAR SYSTEM: Normal in size and morphology for the patient's age. CEREBRAL PARENCHYMA: No significant abnormality. No acute territorial infarct. MIDLINE SHIFT OR HERNIATION: None. CEREBELLUM / BRAINSTEM: No significant abnormality. ORBITS: Normal as visualized. SOFT TISSUES of HEAD: No significant abnormality. CALVARIUM: No significant abnormality. PARANASAL SINUSES / MASTOID AIR CELLS: Normal as visualized. ADDITIONAL FINDINGS: None. IMPRESSION: 1. No acute intracranial abnormality. Signer Name: Kmiberlyn May MD Signed: 07/23/2019 1:10 AM Workstation Name: [id number] Transcribed By: DT Dictated By: Rayna May MD Electronically Authenticated By: Rayna May MD Signed Date/Time: 07/23/19109 DD/ 0105 Findings [facility] [address] [place] [address] XRay Report Signed Patient: JUNIOR ADAME MR#: [id number] 9 : 1960 Acct:[id number] Age/Sex: 59 / M ADM Date: 07/22/19 Loc: ED Attending Dr: Ordering Physician: LORA ARZOLA Date of Service: 07/22/19 Procedure(s): XR chest 1V ap Accession Number(s): [id number] cc: LORA ARZOLA Fluoro Time In Minutes: CHEST 1 VIEW INDICATION: CHEST PAIN COMPARISON: None FINDINGS: Support devices: None Heart: Normal Lungs/Pleura: No acute pulmonary or pleural findings. IMPRESSION: 1. No acute disease Signer Name: Curt Servin MD Signed: 07/22/2019 9:39 PM Workstation Name: [id number] Transcribed By: TM Dictated By: Curt Servin MD Electronically Authenticated By: Curt Servin MD Signed Date/Time: 07/22/192138 DD/ 38 TD/TT: - Medical Decision Making This is a 59-year-old -[place]ese male with a history of BPH, hypertension, chronic low back, recurrent UTIs, kidney stones, mim-ltmndho-httuxsyjd diabetes and hyperlipidemia who presented to the ED with acute onset persistent lightheadedness, headache, generalized weakness for over 12 hours. In the ED, patient is alert and oriented 3 and is not in distress. Labs were drawn and head CT scan without contrast, chest x-ray also performed. Chest x-ray shows no acute cardiopulmonary monitors. Head CT scan without contrast shows no acute intracranial abnormalities or hemorrhage. Lab test results were reviewed and showed BUN of 30, and creatinine of 2.9 which is new finding based on the fact t hat patient's previous visits to this ED showed normal kidney functions. Other lab test results are nonactionable. These lab tests results were discussed with the patient were admitted to taking a lot of NSAIDs for his chronic low back pain. Patient's case was discussed with Dr. Elizalde ED attending physician work through the plan of care to admit the patient for acute renal injury or renal failure workup. I then paged and discussed the patient's case with the hospitalist physician hyperion administrator Dr. Baker who admitted the patient to the hospital. - Differential Diagnosis Lightheaded; Acute renal Failure; Acute UTI; Dehydration; Tension headache Critical Care Time: Yes (35) Critical care time in (mins) excluding proc time.: 35 Critical Care Time: 35 minutes ED Disposition Clinical Impression: Dehydration, Acute urinary tract infection, Intermittent lightheadedness Acute renal failure (ARF) Qualifiers: Acute renal failure type: unspecified Qualified Code(s): N17.9 - Acute kidney failure, unspecified Disposition: 09 OP ADMIT IP TO THIS HOSP Is pt being admited?: Yes Does the pt Need Aspirin: Yes Condition: Stable Time of Disposition: 01:43 <KHADAR ELIZALDE - Last Filed: 07/23/19 03:33> ED Review of Systems ROS: Stated complaint: DIZZINESS/BACK PAIN Other details as noted in HPI ED Course Vital Signs 07/22/19 07/23/19 07/23/19 18:17 03:02 03:06 Temperature 98.3 F 98.0 F 98.6 F Pulse Rate 102 H 74 74 Respiratory 18 18 18 Rate Blood Pressure 110/56 Blood Pressure 112/52 112/54 [Left] O2 Sat by Pulse 100 100 100 Oximetry ED Medical Decision Making - Lab Data Result diagrams: 07/22/19 18:27 07/22/19 18:27 Critical care attestation.: If time is entered above; I have spent that time in minutes in the direct care of this critically ill patient, excluding procedure time.
[2019-07-23] MEDS ORDERED: ASPIRIN 81 MG TAB CHEW PO ONE (01:44)
[2019-07-23] MEDS ORDERED: ACETAMINOPHEN 325 MG TAB PO PRN (02:05)
[2019-07-23] MEDS ORDERED: DEXTROSE 50% IN WATER (25GM) 50 ML SYRINGE IV PRN (02:05)
[2019-07-23] MEDS ORDERED: ONDANSETRON 4 MG/2 ML INJ IV PRN (02:05)
--- NOTE | 2019-07-23 02:20 | History and Physical Report ---
<DANIEL NAZARIO - Last Filed: 07/23/19 03:11> History of Present Illness Date of examination: 07/23/19 Date of admission: 07/23/2019 Chief complaint: Lightheadedness, headache, and generalized weakness History of present illness: 59-year-old -Dominican male was an ongoing smoker with history of hypertension, diabetes, BPH, HLD, s/p right urethral stent, s/p lithotripsy, cocaine abuse who presents to [facility] with complaints of hypotension, lightheadedness and dizziness for the past day. Pt states that he had his blood pressure this morning after getting out of bed and feeling dizzy and it was 84/62. He had to 3 glasses of water and rechecked his blood pressure with slight improvement at 95/62. Patient went back to bed and decided to rest. Patient got back out of bed later on in the day and continued to feel dizzy and lightheaded, so decided to come in for further evaluation. Of note patient states that for the past 4-5 days he has had little to no oral intake, because he was on a cocaine binge and did not have an appetite. Pt admits to being compliant with meds. Denies; n/v/d, fever, showed disturbances, gait dysfunction, neck stiffness, or recent sick contact Past History Past Medical History: diabetes (type 2), hypertension, hyperlipidemia, other (chronic back pain, BPH, anxiety, positive PPD test with negative CXR (20 ( years ago) Past Surgical History: Other (right renal stent, lithotripsy, C4-C5 cervical spine surgery (4-5yrs ago)) Social history: smoking (smokes 1 pack per day), other (cocaine abuse) Family history: no significant family history Medications and Allergies Allergies Allergy/AdvReac Type Severity Reaction Status Date / Time No Known Allergies Allergy Verified 07/22/19 17:28 Home Medications Medication Instructions Recorded Confirmed Last Taken Type AtorvaSTATin [Lipitor] 40 mg PO QHS 03/07/19 07/23/19 03/14/19 07:00 History Clarispray 2 spray INHALATION DAILY 03/07/19 07/23/19 Unknown History Dutasteride [Avodart] 0.5 mg PO DAILY 03/07/19 07/23/19 03/14/19 07:00 History Escitalopram [Lexapro] 10 mg PO DAILY 03/07/19 07/23/19 07/23/19 History Gabapentin [Neurontin] 800 mg PO TID 03/07/19 07/23/19 07/23/19 History Glimepiride [Amaryl] 4 mg PO QAM 03/07/19 07/23/19 07/23/19 History HYDROcodone/APAP 10-325 [[place] 1 each PO Q6HR PRN 03/07/19 07/23/19 03/13/19 21:00 History 10/325] Ibuprofen [Motrin] 800 mg PO PRN PRN 03/07/19 07/23/19 03/05/19 07:00 History Lisinopril [Zestril TAB] 40 mg PO QDAY 03/07/19 07/23/19 03/14/19 07:00 History Metformin HCl [metFORMIN] 1,000 mg PO BID 03/07/19 07/23/19 03/14/19 07:00 History QUEtiapine [SEROquel] 300 mg PO DAILY 03/07/19 07/23/19 07/23/19 History lamoTRIgine [Lamictal] 50 mg PO BID 03/07/19 07/23/19 07/23/19 History HYDROcodone/APAP 5-325 [[place] 1 - 2 each PO Q6HR PRN #14 tablet 03/16/19 07/23/19 Unknown Rx 5/325] Ibuprofen [Motrin 800 MG tab] 800 mg PO Q8HR PRN #20 tablet 03/16/19 07/23/19 Unknown Rx Active Meds: Active Medications Acetaminophen (Tylenol) 650 mg PO Q4H PRN PRN Reason: Pain MILD(1-3)/Fever >100.5/CHUN Atorvastatin Calcium (Lipitor) 40 mg PO QHS [facility] Dextrose (D50w (25gm) Syringe) 50 ml IV Q30MIN PRN PRN Reason: Hypoglycemia Escitalopram Oxalate (Lexapro) 10 mg PO DAILY [facility] Gabapentin (Gabapentin) 800 mg PO TID [facility] Heparin Sodium (Porcine) (Heparin) 5,000 unit SUB-Q Q12HR [facility] Sodium Chloride (Nacl 0.9% 1000 Ml) 1,000 mls @ 100 mls/hr IV DIRECT [facility] Ceftriaxone Sodium (Rocephin/Ns 1 Gm/50 Ml) 1 gm in 50 mls @ 100 mls/hr IV Q24HR [facility]; Protocol Insulin Human Lispro (Humalog) 0 unit SUB-Q ACHS [facility]; Protocol Lamotrigine (Lamictal) 50 mg PO BID [facility] Miscellaneous Medication (Metformin Hcl [Metformin]) 1,000 mg PO BID [facility] Nicotine (Habitrol) 14 mg TD ONCE ONE Stop: 07/23/19 02:12 Ondansetron HCl (Zofran) 4 mg IV Q8H PRN PRN Reason: Nausea And Vomiting Oxycodone/Acetaminophen (Percocet 5/325) 1 tab PO Q6H PRN PRN Reason: Pain, Moderate (4-6) Quetiapine Fumarate (Seroquel) 300 mg PO DAILY [facility] Sodium Chloride (Sodium Chloride Flush Syringe 10 Ml) 10 ml IV BID [facility] Sodium Chloride (Sodium Chloride Flush Syringe 10 Ml) 10 ml IV PRN PRN PRN Reason: LINE FLUSH Review of Systems All systems: negative Cardiovascular: lightheadedness, other (hypotension, headache) Musculoskeletal: low back pain (chronic) Exam - Physical Exam Narrative exam: General appearance: Present: No acute distress, alert and oriented 3, well developed, well-nourished, adult male - EENT Eyes: Present: PERRL, EOM intact ENT: hearing intact, normal dentition - Neck Neck: Present: supple, normal ROM - Respiratory Respiratory effort: Non-labored Respiratory: bilateral: CTA with diminished bases bilaterally - Cardiovascular Heart rate:67 (bpm) Rhythm:SR nonspecific T-wave abnormalities Heart Sounds: Present: S1, S2. - Extremities Extremities: no ischemia, pulses intact - Peripheral Assessment Peripheral Pulses: within normal limits - Abdominal General gastrointestinal: soft, non-tender, normal bowel sounds, - Integumentary Integumentary: Present: warm, dry - Musculoskeletal Musculoskeletal: Able to move all extremities -Neurological Neurological: CN II-XII grossly intact - Psychiatric Psychiatric: cooperative - Constitutional Vitals: Temp Pulse Resp BP Pulse Ox 98.3 F 102 H 18 110/56 100 07/22/19 18:17 07/22/19 18:17 07/22/19 18:17 07/22/19 18:17 07/22/19 18:17 Results - Labs CBC & Chem 7: 07/22/19 18:27 07/22/19 18:27 Labs: Laboratory Last Values WBC 8.5 K/mm3 (4.5-11.0) 07/22/19 18: RBC 4.75 M/mm3 (3.65-5.03) 07/22/19 18: Hgb 15.1 gm/dl (11.8-15.2) 07/22/19 18: Hct 44.3 % (35.5-45.6) 07/22/19 18: MCV 93 fl (84-94) 07/22/19 18: MCH 32 pg (28-32) 07/22/19 18: MCHC 34 % (32-34) 07/22/19 18: RDW 14.5 % (13.2-15.2) 07/22/19 18: Plt Count 232 K/mm3 (140-440) 07/22/19 18: Lymph % (Auto) 18.0 % (13.4-35.0) 07/22/19 18: [place] % (Auto) 9.1 % (0.0-7.3) H 07/22/19 18: Eos % (Auto) 1.4 % (0.0-4.3) 07/22/19 18: Baso % (Auto) 0.6 % (0.0-1.8) 07/22/19 18: Lymph # 1.5 K/mm3 (1.2-5.4) 07/22/19 18: [place] # 0.8 K/mm3 (0.0-0.8) 07/22/19 18: Eos # 0.1 K/mm3 (0.0-0.4) 07/22/19 18: Baso # 0.1 K/mm3 (0.0-0.1) 07/22/19 18: Seg Neutrophils % 70.9 % (40.0-70.0) H 07/22/19 18: Seg Neutrophils # 6.1 K/mm3 (1.8-7.7) 07/22/19 18: Sodium 139 mmol/L (137-145) 07/22/19 18: Potassium 4.0 mmol/L (3.6-5.0) 07/22/19 18: Chloride 101.3 mmol/L (98-107) 07/22/19 18:27 Carbon Dioxide 23 mmol/L (22-30) 07/22/19 18:27 Anion Gap 19 mmol/L 07/22/19 18:27 BUN 30 mg/dL (9-20) H 07/22/19 18:27 Creatinine 2.9 mg/dL (0.8-1.5) H 07/22/19 18:27 Estimated GFR 27 ml/min 07/22/19 18:27 BUN/Creatinine Ratio 10 % 07/22/19 18:27 Glucose 123 mg/dL (75-100) H 07/22/19 18:27 Calcium 10.0 mg/dL (8.4-10.2) 07/22/19 18:27 Total Bilirubin 0.30 mg/dL (0.1-1.2) 07/22/19 18:27 AST 29 units/L (5-40) 07/22/19 18:27 ALT 25 units/L (7-56) 07/22/19 18:27 Alkaline Phosphatase 122 units/L (35-129) 07/22/19 18:27 Total Creatine Kinase 479 units/L (55-170) H 07/22/19 18:27 CK-MB (CK-2) 6.0 ng/mL (0.0-4.0) H 07/22/19 18:27 CK-MB (CK-2) Rel Index 1.2 (0-4) 07/22/19 18:27 Troponin T < 0.010 ng/mL (0.00-0.029) 07/22/19 21:30 Total Protein 7.7 g/dL (6.3-8.2) 07/22/19 18:27 Albumin 4.4 g/dL (3.9-5) 07/22/19 18:27 Albumin/Globulin Ratio 1.3 % 07/22/19 18:27 Urine Color Yellow (Yellow) 07/22/19 Unknown Urine Turbidity Cloudy (Clear) 07/22/19 Unknown Urine pH 5.0 (5.0-7.0) 07/22/19 Unknown Ur Specific [place] 1.021 (1.003-1.030) 07/22/19 Unknown Urine Protein 100 mg/dl mg/dL (Negative) 07/22/19 Unknown Urine Glucose (UA) 50 mg/dL (Negative) 07/22/19 Unknown Urine Ketones Neg mg/dL (Negative) 07/22/19 Unknown Urine Blood Mod (Negative) 07/22/19 Unknown Urine Nitrite Neg (Negative) 07/22/19 Unknown Urine Bilirubin Neg (Negative) 07/22/19 Unknown Urine Urobilinogen 2.0 mg/dL (<2.0) 07/22/19 Unknown Ur Leukocyte Esterase Lg (Negative) 07/22/19 Unknown Urine WBC (Auto) > 182.0 /HPF (0.0-6.0) H 07/22/19 Unknown Urine RBC (Auto) 37.0 /HPF (0.0-6.0) 07/22/19 Unknown U Epithel Cells (Auto) 8.0 /HPF (0-13.0) 07/22/19 Unknown - Imaging and Cardiology Imaging and Cardiology: CT Head: FINDINGS: HEMORRHAGE: None. EXTRA-AXIAL SPACES: Normal in size and morphology for the patient's age. VENTRICULAR SYSTEM: Normal in size and morphology for the patient's age. CEREBRAL PARENCHYMA: No significant abnormality. No acute territorial infarct. MIDLINE SHIFT OR HERNIATION: None. CEREBELLUM / BRAINSTEM: No significant abnormality. ORBITS: Normal as visualized. SOFT TISSUES of HEAD: No significant abnormality. CALVARIUM: No significant abnormality. PARANASAL SINUSES / MASTOID AIR CELLS: Normal as visualized. ADDITIONAL FINDINGS: None. IMPRESSION: 1. No acute intracranial abnormality. CXR: FINDINGS: Support devices: None Heart: Normal Lungs/Pleura: No acute pulmonary or pleural findings. IMPRESSION: 1. No acute disease Assessment and Plan Assessment and plan: 59-year-old -Dominican male was an ongoing smoker with history of hypertension, diabetes, BPH, HLD, s/p right urethral stent, s/p lithotripsy, cocaine abuse who presents to [facility] with complaints of hypotension, lightheadedness and dizziness for the past day. UTI -Hx of recurrent UTI -Urine WBC >132 -Urine culture pending -On IV Abx NIKO -Likely secondary to dehydration -Cr on admission 2.0 -Baseline 1.5 (02/2019) -Hx of Rt renal stent -Start on IVF -Renal ultrasound pending -Avoid nephrotoxin agents -Renal dose all meds -Nephrology consulted Hypotension -On IVF -Continue to monitor BP -Hold all antihypertensive meds Hx HTN -Monitor BP -Hold antihypertensive meds for now; pt is hypotensive DM2 -POC BG monitoring -Continue Glimepiride -Hold metformin d/t acute kidney injury -SSI coverage prn -Hgb A1c pending Tobacco abuse -Smokes 1 pack per day -Counseled for cessation -Nicotine patch when necessary Cocaine abuse -Self-reports going on 4-5 cocaine binge -UDS pending -Counseled for cessation Hx Chronic Back Pain -C4-C5 cervical spine surgery (4-5 yrs ago) at [facility] -Continue supportive care HLD -Continue statin DVT PPX -on Heparin Advance Directives: No VTE prophylaxis?: Chemical Plan of care discussed with patient/family: Yes <OSWALD VILLAR - Last Filed: 07/24/19 00:33> History of Present Illness Date of admission: 07/23/19 02:05 Medications and Allergies Active Meds: Active Medications Acetaminophen (Tylenol) 650 mg PO Q4H PRN PRN Reason: Pain MILD(1-3)/Fever >100.5/CHUN Atorvastatin Calcium (Lipitor) 40 mg PO QHS [facility] Last Admin: 07/23/19 22:43 Dose: 40 mg Documented by: Dextrose (D50w (25gm) Syringe) 0 ml IV Q30MIN PRN PRN Reason: Hypoglycemia Escitalopram Oxalate (Lexapro) 10 mg PO DAILY [facility] Last Admin: 07/23/19 09:23 Dose: 10 mg Documented by: Gabapentin (Gabapentin) 800 mg PO TID [facility] Last Admin: 07/23/19 22:43 Dose: 800 mg Documented by: Glimepiride (Amaryl) 4 mg PO QAM@0800 [facility] Last Admin: 07/23/19 08:52 Dose: 4 mg Documented by: Heparin Sodium (Porcine) (Heparin) 5,000 unit SUB-Q Q12HR [facility] Last Admin: 07/23/19 22:42 Dose: 5,000 unit Documented by: Ceftriaxone Sodium (Rocephin/Ns 1 Gm/50 Ml) 1 gm in 50 mls @ 100 mls/hr IV Q24HR [facility]; Protocol Last Infusion: 07/23/19 10:41 Dose: Infused Documented by: Sodium Chloride (Nacl 0.45% 1000 Ml) 1,000 mls @ 150 mls/hr IV DIRECT [facility] Last Admin: 07/23/19 22:41 Dose: 150 mls/hr Documented by: Insulin Human Lispro (Humalog) 0 unit SUB-Q ACHS [facility]; Protocol Last Admin: 07/23/19 22:45 Dose: Not Given Documented by: Lamotrigine (Lamictal) 50 mg PO BID [facility] Last Admin: 07/23/19 22:43 Dose: 50 mg Documented by: Ondansetron HCl (Zofran) 4 mg IV Q8H PRN PRN Reason: Nausea And Vomiting Oxycodone/Acetaminophen (Percocet 5/325) 1 tab PO Q6H PRN PRN Reason: Pain, Moderate (4-6) Last Admin: 07/23/19 16:00 Dose: 1 tab Documented by: Quetiapine Fumarate (Seroquel) 300 mg PO DAILY [facility] Last Admin: 07/23/19 09:23 Dose: 300 mg Documented by: Sodium Chloride (Sodium Chloride Flush Syringe 10 Ml) 10 ml IV BID [facility] Last Admin: 07/23/19 22:43 Dose: 10 ml Documented by: Sodium Chloride (Sodium Chloride Flush Syringe 10 Ml) 10 ml IV PRN PRN PRN Reason: LINE FLUSH Last Admin: 07/23/19 04:49 Dose: 10 ml Documented by: Exam - Constitutional Vitals: Temp Pulse Resp BP Pulse Ox 97.9 F 68 24 109/58 98 07/23/19 21:47 07/23/19 17:30 07/23/19 21:47 07/23/19 21:47 07/23/19 17:30 Results - Labs CBC & Chem 7: 07/22/19 18:27 07/23/19 08:20 Labs: Laboratory Last Values WBC 8.5 K/mm3 (4.5-11.0) 07/22/19 18:27 RBC 4.75 M/mm3 (3.65-5.03) 07/22/19 18:27 Hgb 15.1 gm/dl (11.8-15.2) 07/22/19 18:27 Hct 44.3 % (35.5-45.6) 07/22/19 18:27 MCV 93 fl (84-94) 07/22/19 18:27 MCH 32 pg (28-32) 07/22/19 18:27 MCHC 34 % (32-34) 07/22/19 18:27 RDW 14.5 % (13.2-15.2) 07/22/19 18:27 Plt Count 232 K/mm3 (140-440) 07/22/19 18:27 Lymph % (Auto) 18.0 % (13.4-35.0) 07/22/19 18:27 [place] % (Auto) 9.1 % (0.0-7.3) H 07/22/19 18:27 Eos % (Auto) 1.4 % (0.0-4.3) 07/22/19 18:27 Baso % (Auto) 0.6 % (0.0-1.8) 07/22/19 18:27 Lymph # 1.5 K/mm3 (1.2-5.4) 07/22/19 18:27 [place] # 0.8 K/mm3 (0.0-0.8) 07/22/19 18:27 Eos # 0.1 K/mm3 (0.0-0.4) 07/22/19 18:27 Baso # 0.1 K/mm3 (0.0-0.1) 07/22/19 18:27 Seg Neutrophils % 70.9 % (40.0-70.0) H 07/22/19 18:27 Seg Neutrophils # 6.1 K/mm3 (1.8-7.7) 07/22/19 18:27 Sodium 139 mmol/L (137-145) 07/23/19 08:20 Potassium 4.1 mmol/L (3.6-5.0) 07/23/19 08:20 Chloride 105.5 mmol/L (98-107) 07/23/19 08:20 Carbon Dioxide 21 mmol/L (22-30) L 07/23/19 08:20 Anion Gap 17 mmol/L 07/23/19 08:20 BUN 29 mg/dL (9-20) H 07/23/19 08:20 Creatinine 1.7 mg/dL (0.8-1.5) H 07/23/19 08:20 Estimated GFR 50 ml/min 07/23/19 08:20 BUN/Creatinine Ratio 17 % 07/23/19 08:20 Glucose 140 mg/dL (75-100) H 07/23/19 08:20 POC Glucose 159 (70-105) H 07/23/19 21:49 Hemoglobin A1c 6.0 % (4-6) 07/23/19 02:19 Calcium 9.0 mg/dL (8.4-10.2) 07/23/19 08:20 Total Bilirubin 0.30 mg/dL (0.1-1.2) 07/22/19 18:27 AST 29 units/L (5-40) 07/22/19 18:27 ALT 25 units/L (7-56) 07/22/19 18:27 Alkaline Phosphatase 122 units/L (35-129) 07/22/19 18:27 Total Creatine Kinase 479 units/L (55-170) H 07/22/19 18:27 CK-MB (CK-2) 6.0 ng/mL (0.0-4.0) H 07/22/19 18:27 CK-MB (CK-2) Rel Index 1.2 (0-4) 07/22/19 18:27 Troponin T < 0.010 ng/mL (0.00-0.029) 07/22/19 21:30 Total Protein 7.7 g/dL (6.3-8.2) 07/22/19 18:27 Albumin 4.4 g/dL (3.9-5) 07/22/19 18:27 Albumin/Globulin Ratio 1.3 % 07/22/19 18:27 Urine Color Yellow (Yellow) 07/22/19 Unknown Urine Turbidity Cloudy (Clear) 07/22/19 Unknown Urine pH 5.0 (5.0-7.0) 07/22/19 Unknown Ur Specific [place] 1.021 (1.003-1.030) 07/22/19 Unknown Urine Protein 100 mg/dl mg/dL (Negative) 07/22/19 Unknown Urine Glucose (UA) 50 mg/dL (Negative) 07/22/19 Unknown Urine Ketones Neg mg/dL (Negative) 07/22/19 Unknown Urine Blood Mod (Negative) 07/22/19 Unknown Urine Nitrite Neg (Negative) 07/22/19 Unknown Urine Bilirubin Neg (Negative) 07/22/19 Unknown Urine Urobilinogen 2.0 mg/dL (<2.0) 07/22/19 Unknown Ur Leukocyte Esterase Lg (Negative) 07/22/19 Unknown Urine WBC (Auto) > 182.0 /HPF (0.0-6.0) H 07/22/19 Unknown Urine RBC (Auto) 37.0 /HPF (0.0-6.0) 07/22/19 Unknown U Epithel Cells (Auto) 8.0 /HPF (0-13.0) 07/22/19 Unknown Urine Opiates Screen Presumptive negative 07/23/19 03:06 Urine Methadone Screen Presumptive negative 07/23/19 03:06 Ur Barbiturates Screen Presumptive negative 07/23/19 03:06 Ur Phencyclidine Scrn Presumptive negative 07/23/19 03:06 Ur Amphetamines Screen Presumptive negative 07/23/19 03:06 U Benzodiazepines Scrn Presumptive negative 07/23/19 03:06 Urine Cocaine Screen Presumptive positive 07/23/19 03:06 U Marijuana (THC) Screen Presumptive negative 07/23/19 03:06 Drugs of Abuse Note Disclamer 07/23/19 03:06 Assessment and Plan Assessment and plan: 59-year-old man history of hypertension, diabetes, GERD, hyperlipidemia, BPH,'s emergency room with complaints of feeling dizzy 2 days. He was found to be in acute renal failure secondary to NSAID use. He takes 3 800 mg of ibuprofen a day. Hydrate, obtain renal ultrasound, further plan as stated above
[2019-07-23] MEDS ORDERED: NICOTINE 14 MG/24 HR PATCH TD ONE (02:30)
[2019-07-23] MEDS ORDERED: SODIUM CHLORIDE 0.9% 1000 ML 1,000 ML IV SCH (03:00)
[2019-07-23] MEDS ORDERED: oxyCODONE /ACETAMINOPHEN 5-325MG TAB PO ONE (03:14)
[2019-07-23] MEDS ORDERED: ASPIRIN 325 MG TAB ONE (03:14)
[2019-07-23] MEDS ORDERED: ASPIRIN 81 MG TAB CHEW ONE (03:18)
[2019-07-23] MEDS ORDERED: oxyCODONE /ACETAMINOPHEN 5-325MG TAB ONE (03:19)
--- NOTE | 2019-07-23 04:14 | Ultrasound Report ---
ULTRASOUND RENAL INDICATION / CLINICAL INFORMATION: hx of renal stents, presents with NIKO. COMPARISON: None available. FINDINGS: RIGHT KIDNEY: Length = 12.1 cm. - Echogenicity: Normal. - Cortical Thickness: Normal. - Hydronephrosis: None. - Cyst or mass: Several small cysts. - Stones: Tiny nonobstructing stones. LEFT KIDNEY: Length = 11.5 cm. - Echogenicity: Normal. - Cortical Thickness: Normal. - Hydronephrosis: None. - Cyst or mass: Several small cysts. - Stones: Tiny nonobstructing stones. URINARY BLADDER: No significant abnormality. Prostate is enlarged with mass effect on the base of the bladder. FREE FLUID: None. ADDITIONAL FINDINGS: None. IMPRESSION: 1. No acute sonographic abnormality of either kidney. No hydronephrosis. 2. Small bilateral renal cysts with tiny nonobstructing stones. 3. Enlarged prostate. Signer Name: Kimberlyn May MD Signed: 07/23/2019 4:10 AM Workstation Name: [id number]
[2019-07-23 04:25] LABS: Amphetamine Screen,Urine PRESUMPTIVE NEGATIVE; Benzodiazepines Screen,Urine PRESUMPTIVE NEGATIVE; Cannabinoid Screen,Urine PRESUMPTIVE NEGATIVE; Methadone Screen,Urine PRESUMPTIVE NEGATIVE; Opiate Screen,Urine PRESUMPTIVE NEGATIVE
[2019-07-23 04:40] LABS: Cocaine Screen,Urine PRESUMPTIVE POSITIVE
[2019-07-23] MEDS: SODIUM CHLORIDE 0.45% 1000 ML 1,000 ML IV SCH ×3 (04:48→22:41)
[2019-07-23] MEDS: INSULIN LISPRO 100 UNIT/ML SUB-Q SCH ×4 (08:47→22:45)
[2019-07-23] MEDS: GABAPENTIN 400 MG CAP PO SCH ×3 (08:48→22:43)
[2019-07-23] MEDS: GLIMEPIRIDE 4 MG TAB PO SCH (08:52)
[2019-07-23] MEDS: oxyCODONE /ACETAMINOPHEN 5-325MG TAB PO PRN ×2 (08:55→16:00)
[2019-07-23] MEDS: cefTRIAXone/NS 1 GM/50 ML 1 GM/50 ML BAG IV SCH (09:22)
[2019-07-23] MEDS: QUEtiapine 100 MG TAB PO SCH (09:23)
[2019-07-23] MEDS: ESCITALOPRAM 10 MG TAB PO SCH (09:23)
[2019-07-23] MEDS: HEPARIN 5,000 UNIT/1 ML VIAL SUB-Q SCH ×2 (09:26→22:42)
[2019-07-23] MEDS ORDERED: NON-FORMULARY EACH (Metformin Hcl [Metformin] 1,000 MG) PO SCH (10:00)
[2019-07-23] MEDS: lamoTRIgine 25 MG TAB PO SCH ×2 (10:51→22:43)
--- NOTE | 2019-07-23 17:07 | Consultation ---
History of Present Illness - Reason for Consult Consult date: 07/23/19 acute renal failure Requesting physician: DANIEL NAZARIO - History of Present Illness This is a 59 yo AAM with past medical history of hypertension, diabetes, BPH, HLD, s/p right urethral stent, s/p lithotripsy, cocaine abuse who presents to [facility] ED with complaints of hypotension, lightheadedness and dizziness for the past day. Pt's AM BP was reportedly 84/62 accompanied by dizziness. He had to 3 glasses of water and rechecked his blood pressure with slight improvement at 95/62. Patient got back out of bed later on in the day and continued to feel dizzy and lightheaded, so decided to come in for further evaluation. Of note patient states that for the past 4-5 days he has had little to no oral intake, because he was on a cocaine binge and did not have an appetite. Pt admits to being compliant with meds. In ER UA was consistent with UTI and labs showed elevated BUN/Cr at 30/2.9mg/dl for which renal consult is requested. Pt denies recent NSAIDs use or IV contrast exposure. Past History Past Medical History: diabetes (type 2), hypertension, hyperlipidemia, other (chronic back pain, BPH, anxiety, positive PPD test with negative CXR (20 ( yea rs ago) Past Surgical History: Other (right renal stent, lithotripsy, C4-C5 cervical spine surgery (4-5yrs ago)) Social history: smoking (smokes 1 pack per day), other (cocaine abuse) Family history: no significant family history Medications and Allergies Allergies Allergy/AdvReac Type Severity Reaction Status Date / Time No Known Allergies Allergy Verified 07/22/19 17:28 Home Medications Medication Instructions Recorded Confirmed Last Taken Type AtorvaSTATin [Lipitor] 40 mg PO QHS 03/07/19 07/23/19 03/14/19 07:00 History Clarispray 2 spray INHALATION DAILY 03/07/19 07/23/19 Unknown History Dutasteride [Avodart] 0.5 mg PO DAILY 03/07/19 07/23/19 03/14/19 07:00 History Escitalopram [Lexapro] 10 mg PO DAILY 03/07/19 07/23/19 07/23/19 History Gabapentin [Neurontin] 800 mg PO TID 03/07/19 07/23/1907/23/19 History Glimepiride [Amaryl] 4 mg PO QAM 03/07/19 07/23/19 07/23/19 History HYDROcodone/APAP 10-325 [[place] 1 each PO Q6HR PRN 03/07/19 07/23/19 03/13/19 21:00 History 10/325] Ibuprofen [Motrin] 800 mg PO PRN PRN 03/07/19 07/23/19 03/05/19 07:00 History Lisinopril [Zestril TAB] 40 mg PO QDAY 03/07/19 07/23/19 03/14/19 07:00 History Metformin HCl [metFORMIN] 1,000 mg PO BID 03/07/19 07/23/19 03/14/19 07:00 History QUEtiapine [SEROquel] 300 mg PO DAILY 03/07/19 07/23/19 07/23/19 History lamoTRIgine [Lamictal] 50 mg PO BID 03/07/19 07/23/19 07/23/19 History HYDROcodone/APAP 5-325 [[place] 1 - 2 each PO Q6HR PRN #14 tablet 03/16/19 07/23/19 Unknown Rx 5/325] Ibuprofen [Motrin 800 MG tab] 800 mg PO Q8HR PRN #20 tablet 03/16/19 07/23/19 Unknown Rx Active Meds: Active Medications Acetaminophen (Tylenol) 650 mg PO Q4H PRN PRN Reason: Pain MILD(1-3)/Fever >100.5/CHUN Atorvastatin Calcium (Lipitor) 40 mg PO QHS [facility] Dextrose (D50w (25gm) Syringe) 0 ml IV Q30MIN PRN PRN Reason: Hypoglycemia Escitalopram Oxalate (Lexapro) 10 mg PO DAILY [facility] Last Admin: 07/23/19 09:23 Dose: 10 mg Documented by: Gabapentin (Gabapentin) 800 mg PO TID [facility] Last Admin: 07/23/19 13:44 Dose: 800 mg Documented by: Glimepiride (Amaryl) 4 mg PO QAM@0800 [facility] Last Admin: 07/23/19 08:52 Dose: 4 mg Documented by: Heparin Sodium (Porcine) (Heparin) 5,000 unit SUB-Q Q12HR [facility] Last Admin: 07/23/19 09:26 Dose: 5,000 unit Documented by: Ceftriaxone Sodium (Rocephin/Ns 1 Gm/50 Ml) 1 gm in 50 mls @ 100 mls/hr IV Q24HR [facility]; Protocol Last Infusion: 07/23/19 10:41 Dose: Infused Documented by: Sodium Chloride (Nacl 0.45% 1000 Ml) 1,000 mls @ 150 mls/hr IV DIRECT [facility] Last Admin: 07/23/19 15:41 Dose: 150 mls/hr Documented by: Insulin Human Lispro (Humalog) 0 unit SUB-Q ACHS [facility]; Protocol Last Admin: 07/23/19 11:44 Dose: Not Given Documented by: Lamotrigine (Lamictal) 50 mg PO BID [facility] Last Admin: 07/23/19 10:51 Dose: 50 mg Documented by: Ondansetron HCl (Zofran) 4 mg IV Q8H PRN PRN Reason: Nausea And Vomiting Oxycodone/Acetaminophen (Percocet 5/325) 1 tab PO Q6H PRN PRN Reason: Pain, Moderate (4-6) Last Admin: 07/23/19 16:00 Dose: 1 tab Documented by: Quetiapine Fumarate (Seroquel) 300 mg PO DAILY [facility] Last Admin: 07/23/19 09:23 Dose: 300 mg Documented by: Sodium Chloride (Sodium Chloride Flush Syringe 10 Ml) 10 ml IV BID [facility] Last Admin: 07/23/19 09:24 Dose: 10 ml Documented by: Sodium Chloride (Sodium Chloride Flush Syringe 10 Ml) 10 ml IV PRN PRN PRN Reason: LINE FLUSH Last Admin: 07/23/19 04:49 Dose: 10 ml Documented by: Review of Systems All systems: negative Constitutional: fatigue, weakness, malaise Exam - Vital Signs Vital signs: Vital Signs Temp Pulse Resp BP Pulse Ox 98.3 F 102 H 18 110/56 100 07/22/19 18:17 07/22/19 18:17 07/22/19 18:17 07/22/19 18:17 07/22/19 18:17 - General Appearance General appearance: well-developed, well-nourished, appears stated age EENT: ATNC, PERRL, mucous membranes moist Neck: Present: neck supple Respiratory: Clear to Ascultation Heart: regular, S1S2 Gastrointestinal: Present: normoactive bowel sounds Integumentary: no rash, other (no edema ) Neurologic: no focal deficit, alert and oriented x3, strength 5/5, CN 3-12 intact Psychiatric: mood/affect appropriate, cooperative Results - Lab Results 07/22/19 18:27 07/23/19 08:20 Most recent lab results Calcium 9.0 mg/dL (8.4-10.2) 07/23/19 08:20 Assessment and Plan - Patient Problems (1) Acute renal failure (ARF) Current Visit: Yes Status: Acute Qualifiers: Acute renal failure type: unspecified Qualified Code(s): N17.9 - Acute kidney failure, unspecified Plan to address problem: cont IV NS at 75ml/hr, renal function improving promptly on IVF. avoid nephrotoxins, NSAIDs, IV contrast. Will monitor lytes/renal parameters and make further recommendations. (2) Acute urinary tract infection Current Visit: Yes Status: Acute Plan to address problem: cont ABXs treatment with Ceftriaxone (3) Dehydration Current Visit: Yes Status: Acute Plan to address problem: cont IVF (4) Cocaine abuse Current Visit: Yes Status: Acute
--- NOTE | 2019-07-23 18:15 | Progress Note ---
Assessment and Plan Assessment and plan: 59-year-old -[place]ir[place] male was an ongoing smoker with history of hypertension, diabetes, BPH, HLD, s/p right urethral stent, s/p lithotripsy, cocaine abuse who presents to [facility] ED with complaints of hypotension, lightheadedness and dizziness for the past day. UTI -Hx of recurrent UTI -Urine WBC >132 -Urine culture pending -On IV Abx NIKO -Likely secondary to dehydration -Cr on admission 2.9 -Baseline 1.5 (02/2019) -Hx of Rt renal stent -Started on IVF -Renal ultrasound pending -Avoid nephrotoxin agents -Renal dose all meds -Nephrology consulted Hypotension -On IVF -Continue to monitor BP -Hold all antihypertensive meds Hx HTN -Monitor BP -Hold antihypertensive meds for now; pt is hypotensive DM2 -POC BG monitoring -Continue Glimepiride -Hold metformin d/t acute kidney injury -SSI coverage prn -Hgb A1c pending Tobacco abuse -Smokes 1 pack per day -Counseled for cessation -Nicotine patch when necessary Cocaine abuse -Self-reports going on 4-5 cocaine binge -UDS positive for cocaine -Counseled for cessation Hx Chronic Back Pain -C4-C5 cervical spine surgery (4-5 yrs ago) at [facility] -Continue supportive care HLD -Continue statin DVT PPX -on Heparin Hospitalist Physical - Physical exam Narrative exam: Gen: Not in acute distress, lying in bed HEENT: Normocephalic, atraumatic Neck: supple, no JVD Heart: S1 and S2 reg, no murmurs, rubs or gallop Lungs: Clear to auscultation, no rhonchi, no wheeze Abd: soft, non tender, non distended, normal BS, Ext: No edema, no clubbing, no cyanosis Neuro: Awake, alert, oriented X 3, no focal neurological signs - Constitutional Vitals: Temp Pulse Resp BP Pulse Ox 98.0 F 73 20 107/68 95 07/23/19 11:27 07/23/19 11:27 07/23/19 11:27 07/23/19 11:27 07/23/19 11:27 Results - Labs CBC & Chem 7: 07/22/19 18:27 07/23/19 08:20 Labs: Laboratory Last Values WBC 8.5 K/mm3 (4.5-11.0) 07/22/19 18: RBC 4.75 M/mm3 (3.65-5.03) 07/22/19 18: Hgb 15.1 gm/dl (11.8-15.2) 07/22/19 18: Hct 44.3 % (35.5-45.6) 07/22/19 18: MCV 93 fl (84-94) 07/22/19 18: MCH 32 pg (28-32) 07/22/19 18: MCHC 34 % (32-34) 07/22/19 18: RDW 14.5 % (13.2-15.2) 07/22/19 18: Plt Count 232 K/mm3 (140-440) 07/22/19 18: Lymph % (Auto) 18.0 % (13.4-35.0) 07/22/19 18: [place] % (Auto) 9.1 % (0.0-7.3) H 07/22/19 18: Eos % (Auto) 1.4 % (0.0-4.3) 07/22/19 18: Baso % (Auto) 0.6 % (0.0-1.8) 07/22/19 18: Lymph # 1.5 K/mm3 (1.2-5.4) 07/22/19 18: [place] # 0.8 K/mm3 (0.0-0.8) 07/22/19 18: Eos # 0.1 K/mm3 (0.0-0.4) 07/22/19 18: Baso # 0.1 K/mm3 (0.0-0.1) 07/22/19 18: Seg Neutrophils % 70.9 % (40.0-70.0) H 07/22/19 18: Seg Neutrophils # 6.1 K/mm3 (1.8-7.7) 07/22/19 18: Sodium 139 mmol/L (137-145) 07/23/19 08:20 Potassium 4.1 mmol/L (3.6-5.0) 07/23/19 08:20 Chloride 105.5 mmol/L (98-107) 07/23/19 08:20 Carbon Dioxide 21 mmol/L (22-30) L 07/23/19 08:20 Anion Gap 17 mmol/L 07/23/19 08:20 BUN 29 mg/dL (9-20) H 07/23/19 08:20 Creatinine 1.7 mg/dL (0.8-1.5) H 07/23/19 08:20 Estimated GFR 50 ml/min 07/23/19 08:20 BUN/Creatinine Ratio 17 % 07/23/19 08:20 Glucose 140 mg/dL (75-100) H 07/23/19 08:20 POC Glucose 50 (70-105) L 07/23/19 17:39 Hemoglobin A1c 6.0 % (4-6) 07/23/19 02:19 Calcium 9.0 mg/dL (8.4-10.2) 07/23/19 08:20 Total Bilirubin 0.30 mg/dL (0.1-1.2) 07/22/19 18:27 AST 29 units/L (5-40) 07/22/19 18:27 ALT 25 units/L (7-56) 07/22/19 18:27 Alkaline Phosphatase 122 units/L (35-129) 07/22/19 18:27 Total Creatine Kinase 479 units/L (55-170) H 07/22/19 18:27 CK-MB (CK-2) 6.0 ng/mL (0.0-4.0) H 07/22/19 18:27 CK-MB (CK-2) Rel Index 1.2 (0-4) 07/22/19 18:27 Troponin T < 0.010 ng/mL (0.00-0.029) 07/22/19 21:30 Total Protein 7.7 g/dL (6.3-8.2) 07/22/19 18:27 Albumin 4.4 g/dL (3.9-5) 07/22/19 18:27 Albumin/Globulin Ratio 1.3 % 07/22/19 18:27 Urine Color Yellow (Yellow) 07/22/19 Unknown Urine Turbidity Cloudy (Clear) 07/22/19 Unknown Urine pH 5.0 (5.0-7.0) 07/22/19 Unknown Ur Specific [place] 1.021 (1.003-1.030) 07/22/19 Unknown Urine Protein 100 mg/dl mg/dL (Negative) 07/22/19 Unknown Urine Glucose (UA) 50 mg/dL (Negative) 07/22/19 Unknown Urine Ketones Neg mg/dL (Negative) 07/22/19 Unknown Urine Blood Mod (Negative) 07/22/19 Unknown Urine Nitrite Neg (Negative) 07/22/19 Unknown Urine Bilirubin Neg (Negative) 07/22/19 Unknown Urine Urobilinogen 2.0 mg/dL (<2.0) 07/22/19 Unknown Ur Leukocyte Esterase Lg (Negative) 07/22/19 Unknown Urine WBC (Auto) > 182.0 /HPF (0.0-6.0) H 07/22/19 Unknown Urine RBC (Auto) 37.0 /HPF (0.0-6.0) 07/22/19 Unknown U Epithel Cells (Auto) 8.0 /HPF (0-13.0) 07/22/19 Unknown Urine Opiates Screen Presumptive negative 07/23/19 03:06 Urine Methadone Screen Presumptive negative 07/23/19 03:06 Ur Barbiturates Screen Presumptive negative 07/23/19 03:06 Ur Phencyclidine Scrn Presumptive negative 07/23/19 03:06 Ur Amphetamines Screen Presumptive negative 07/23/19 03:06 U Benzodiazepines Scrn Presumptive negative 07/23/19 03:06 Urine Cocaine Screen Presumptive positive 07/23/19 03:06 U Marijuana (THC) Screen Presumptive negative 07/23/19 03:06 Drugs of Abuse Note Disclamer 07/23/19 03:06 Active Medications - Current Medications Current Medications: Generic Name Dose Route Start Last Admin Trade Name Freq PRN Reason Stop Dose Admin Acetaminophen 650 mg 07/23/19 02:05 Tylenol PO Q4H PRN Pain MILD(1-3)/Fever >100.5/CHUN Atorvastatin Calcium 40 mg 07/23/19 22:00 Lipitor PO QHS TEO Dextrose 0 ml 07/23/19 02:05 D50w (25gm) Syringe IV Q30MIN PRN Hypoglycemia Escitalopram Oxalate 10 mg 07/23/19 10:00 07/23/19 09:23 Lexapro PO 10 mg DAILY TEO Administration Gabapentin 800 mg 07/23/19 08:00 07/23/19 13:44 Gabapentin PO 800 mg TID TEO Administration Glimepiride 4 mg 07/23/19 08:00 07/23/19 08:52 Amaryl PO 4 mg QAM@0800 TEO Administration Heparin Sodium (Porcine) 5,000 unit 07/23/19 10:00 07/23/19 09:26 Heparin SUB-Q 5,000 unit Q12HR TEO Administration Ceftriaxone Sodium 1 gm in 50 mls @ 100 mls/hr 07/23/19 10:00 07/23/19 10:41 Rocephin/Ns 1 Gm/50 Ml IV Infused Q24HR TEO Infusion Protocol Sodium Chloride 1,000 mls @ 150 mls/hr 07/23/19 04:00 07/23/19 15:41 Nacl 0.45% 1000 Ml IV 150 mls/hr DIRECT TEO Administration Insulin Human Lispro 0 unit 07/23/19 07:30 07/23/19 17:47 Humalog SUB-Q Not Given ACHS TEO Protocol Lamotrigine 50 mg 07/23/19 10:00 07/23/19 10:51 Lamictal PO 50 mg BID TEO Administration Ondansetron HCl 4 mg 07/23/19 02:05 Zofran IV Q8H PRN Nausea And Vomiting Oxycodone/Acetaminophen 1 tab 07/23/19 02:08 07/23/19 16:00 Percocet 5/325 PO 1 tab Q6H PRN Administration Pain, Moderate (4-6) Quetiapine Fumarate 300 mg 07/23/19 10:00 07/23/19 09:23 Seroquel PO 300 mg DAILY TEO Administration Sodium Chloride 10 ml 07/23/19 10:00 07/23/19 09:24 Sodium Chloride Flush Syringe 10 Ml IV 10 ml BID TEO Administration Sodium Chloride 10 ml 07/23/19 02:05 07/23/19 04:49 Sodium Chloride Flush Syringe 10 Ml IV 10 ml PRN PRN Administration LINE FLUSH
[2019-07-24] MEDS: oxyCODONE /ACETAMINOPHEN 5-325MG TAB PO PRN ×2 (02:42→09:03)
--- NOTE | 2019-07-24 04:58 | Event Note ---
Date: 07/23/19 Patient with acute kidney injury due to vasomotor nephropathy, on iv fluids. Dehydration, UTI. Nephrology following. I have seen and examined him. Continue iv fluids.
[2019-07-24 05:35] VITALS: BP 100/42
[2019-07-24 06:29] LABS: Hematocrit 37.8 % (35.5-45.6); Hemoglobin 12.9 gm/dl (11.8-15.2); Mean Corpuscular HGB Conc 34 % (32-34); Mean Corpuscular Volume 94 fl (84-94); Platelet Count 177 K/mm3 (140-440); Red Cell Distribution Width 14.2 % (13.2-15.2)
[2019-07-24 06:52] LABS: BUN/Creatinine Ratio 15; Blood Urea Nitrogen 15 mg/dL (9-20); Calcium 8.3 mg/dL (8.4-10.2); Hemolysis Index 13
[2019-07-24] MEDS: SODIUM CHLORIDE 0.45% 1000 ML 1,000 ML IV SCH (08:32)
[2019-07-24] MEDS: INSULIN LISPRO 100 UNIT/ML SUB-Q SCH (08:49)
[2019-07-24] MEDS: lamoTRIgine 25 MG TAB PO SCH (09:03)
[2019-07-24] MEDS: GABAPENTIN 400 MG CAP PO SCH (09:03)
[2019-07-24] MEDS: GLIMEPIRIDE 4 MG TAB PO SCH (09:04)
[2019-07-24] MEDS: ESCITALOPRAM 10 MG TAB PO SCH (09:04)
[2019-07-24] MEDS: HEPARIN 5,000 UNIT/1 ML VIAL SUB-Q SCH (09:04)
[2019-07-24] MEDS: QUEtiapine 100 MG TAB PO SCH (09:04)
[2019-07-24] MEDS: cefTRIAXone/NS 1 GM/50 ML 1 GM/50 ML BAG IV SCH (09:05)
[2019-07-24 09:30] LABS: Total Cells Counted 100
[2019-07-24 09:34] LABS: Basophils % (Manual) 0 % (0.0-1.8)
[2019-07-24 09:35] LABS: Burr Cells Rare; Platelet Estimate Consistent w Auto
--- NOTE | 2019-07-24 11:24 | Progress Note ---
Assessment and Plan - Patient Problems (1) Acute renal failure (ARF) Current Visit: Yes Status: Acute Qualifiers: Acute renal failure type: unspecified Qualified Code(s): N17.9 - Acute kidney failure, unspecified Plan to address problem: renal function improving promptly on IVF. avoid nephrotoxins, NSAIDs, IV contrast. stable for discharge from renal stand point (2) Acute urinary tract infection Current Visit: Yes Status: Acute Plan to address problem: cont ABXs treatment with Ceftriaxone (3) Dehydration Current Visit: Yes Status: Acute Plan to address problem: cont IVF (4) Cocaine abuse Current Visit: Yes Status: Acute Subjective Date of service: 07/24/19 Principal diagnosis: NIKO Interval history: Pt awake, alert, in no acute distress Objective - Vital Signs Vital signs: Vital Signs - 12hr 07/24/19 04:29 Temperature 97.6 F Pulse Rate 68 Respiratory 20 Rate Blood Pressure 100/42 O2 Sat by Pulse 97 Oximetry - General Appearance General appearance: well-developed, well-nourished, appears stated age EENT: ATNC, PERRL, mucous membranes moist Neck: no JVD Respiratory: Present: Clear to Ascultation Cardiology: regular, S1S2 Gastrointestinal: normal Integumentary: no rash Neurologic: no focal deficit, alert and oriented x3, strength 5/5, CN 3-12 intact Psychiatric: mood/affect appropriate, cooperative - Lab 07/24/19 05:56 07/24/19 05:56 Most recent lab results Calcium 8.3 mg/dL (8.4-10.2) L 07/24/19 05:56 Medications & Allergies - Medications Allergies/Adverse Reactions: Allergies No Known Allergies Allergy (Verified 07/22/19 17:28) Home Medications: Home Medications Medication Instructions Recorded Confirmed Last Taken Type AtorvaSTATin [Lipitor] 40 mg PO QHS 03/07/19 07/23/19 03/14/19 07:00 History Clarispray 2 spray INHALATION DAILY 03/07/19 07/23/19 Unknown History Dutasteride [Avodart] 0.5 mg PO DAILY 03/07/19 07/23/19 03/14/19 07:00 History Escitalopram [Lexapro] 10 mg PO DAILY 03/07/19 07/23/19 07/23/19 History Gabapentin [Neurontin] 800 mg PO TID 03/07/19 07/23/1907/23/19 History Glimepiride [Amaryl] 4 mg PO QAM 03/07/19 07/23/19 07/23/19 History HYDROcodone/APAP 10-325 [[place] 1 each PO Q6HR PRN 03/07/19 07/23/19 03/13/19 21:00 History 10/325] Ibuprofen [Motrin] 800 mg PO PRN PRN 03/07/19 07/23/19 03/05/19 07:00 History Lisinopril [Zestril TAB] 40 mg PO QDAY 03/07/19 07/23/19 03/14/19 07:00 History Metformin HCl [metFORMIN] 1,000 mg PO BID 03/07/19 07/23/19 03/14/19 07:00 History QUEtiapine [SEROquel] 300 mg PO DAILY 03/07/19 07/23/19 07/23/19 History lamoTRIgine [Lamictal] 50 mg PO BID 03/07/19 07/23/19 07/23/19 History HYDROcodone/APAP 5-325 [[place] 1 - 2 each PO Q6HR PRN #14 tablet 03/16/19 07/23/19 Unknown Rx 5/325] Ibuprofen [Motrin 800 MG tab] 800 mg PO Q8HR PRN #20 tablet 03/16/19 07/23/19 Unknown Rx Active Medications: Generic Name Dose Route Start Last Admin Trade Name Freq PRN Reason Stop Dose Admin Acetaminophen 650 mg 07/23/19 02:05 Tylenol PO Q4H PRN Pain MILD(1-3)/Fever >100.5/CHUN Atorvastatin Calcium 40 mg 07/23/19 22:00 07/23/19 22:43 Lipitor PO 40 mg QHS TEO Administration Dextrose 0 ml 07/23/19 02:05 D50w (25gm) Syringe IV Q30MIN PRN Hypoglycemia Escitalopram Oxalate 10 mg 07/23/19 10:00 07/24/19 09:04 Lexapro PO 10 mg DAILY TEO Administration Gabapentin 800 mg 07/23/19 08:00 07/24/19 09:03 Gabapentin PO 800 mg TID TEO Administration Glimepiride 4 mg 07/23/19 08:00 07/24/19 09:04 Amaryl PO 4 mg QAM@0800 TEO Administration Heparin Sodium (Porcine) 5,000 unit 07/23/19 10:00 07/24/19 09:04 Heparin SUB-Q 5,000 unit Q12HR TEO Administration Ceftriaxone Sodium 1 gm in 50 mls @ 100 mls/hr 07/23/19 10:00 07/24/19 09:05 Rocephin/Ns 1 Gm/50 Ml IV 07/26/19 10:29 100 mls/hr Q24HR TEO Administration Protocol Sodium Chloride 1,000 mls @ 150 mls/hr 07/23/19 04:00 07/24/19 08:32 Nacl 0.45% 1000 Ml IV 150 mls/hr DIRECT TEO Administration Insulin Human Lispro 0 unit 07/23/19 07:30 07/24/19 08:49 Humalog SUB-Q Not Given ACHS [facility] Protocol Lamotrigine 50 mg 07/23/19 10:00 07/24/19 09:03 Lamictal PO 50 mg BID TEO Administration Ondansetron HCl 4 mg 07/23/19 02:05 Zofran IV Q8H PRN Nausea And Vomiting Oxycodone/Acetaminophen 1 tab 07/23/19 02:08 07/24/19 09:03 Percocet 5/325 PO 1 tab Q6H PRN Administration Pain, Moderate (4-6) Quetiapine Fumarate 300 mg 07/23/19 10:00 07/24/19 09:04 Seroquel PO 300 mg DAILY TEO Administration Sodium Chloride 10 ml 07/23/19 10:00 07/24/19 09:06 Sodium Chloride Flush Syringe 10 Ml IV 10 ml BID TEO Administration Sodium Chloride 10 ml 07/23/19 02:05 07/23/19 04:49 Sodium Chloride Flush Syringe 10 Ml IV 10 ml PRN PRN Administration LINE FLUSH
--- NOTE | 2019-07-24 18:07 | Discharge Summary ---
Providers - Providers Date of Admission: 07/23/19 02:05 Date of discharge: 07/24/19 Attending physician: NELSON DORAN 07/23/19 02:05 Consult to Physician [CONS] Routine Comment: Consulting Provider: ANABEL KILPATRICK Physician Instructions: Reason For Exam: NIKO Primary care physician: PLASTIC DESIGN APPLIER Hospitalization Condition: Stable Hospital course: 59-year-old -[place] male was an ongoing smoker with history of hypertension, diabetes, BPH, HLD, s/p right urethral stent, s/p lithotripsy, cocaine abuse who presents [facility] with complaints of hypotension, lightheadedness and dizziness for the past day. Pt states that he took his blood pressure on morning of admission because he was feeling dizzy and it was 84/62. Patient got back out of bed later on in the day and continued to feel dizzy and lightheaded, so decided to come in for further evaluation. he admits to poor oral intake, because he was on a cocaine binge and did not have an appetite. He was seen and evaluated in ED. Initial Creatinine was 2.9. He was diagnosed with NIKO, dehydration, started on iv fluids and admitted. He was seen by Traveling Crane Operator. Patient improved, Creatinine down to baseline 1.0, and was being ready for discharge on 07/24. however he stated he cannot wait and signed out and left against medical advice. Total time spent on discharge, 32 mins Disposition: [id number] LEFT AGAINST MED ADVICE - Discharge Diagnoses (1) NIKO (acute kidney injury) Status: Acute (2) Vasomotor nephropathy Status: Acute (3) Cocaine abuse Status: Acute (4) Dehydration Status: Acute (5) UTI (urinary tract infection) Status: Acute (6) Left against medical advice Status: Acute Core Measure Documentation - Palliative Care Palliative Care/ Comfort Measures: Not Applicable - Core Measures Any of the following diagnoses?: none Exam - Constitutional Vitals: Temp Pulse Resp BP Pulse Ox 97.6 F 68 16 100/42 97 07/24/19 04:29 07/24/19 10:00 07/24/19 10:00 07/24/19 04:29 07/24/19 04:29 Plan Follow up with: PRIMARY CARE, [Primary Care Provider] - 3-5 Days
--- NOTE | 2019-07-24 18:08 | Event Note ---
Date: 07/24/19 Patient left against medical advice
== END 2019-07-24 10:30 | disposition left against medical advice (07) | DRG 689 ==
LOC: ED 17:23 → 3A 07-23 02:05
PROVIDERS: ADMIT Internal Medicine; ATTEND Internal Medicine
DX: N39.0 Urinary tract infection, site not specified (principal); N17.0 Acute kidney failure with tubular necrosis; E11.9 Type 2 diabetes mellitus without complications; N40.0 Benign prostatic hyperplasia without lower urinary tract symptoms; F14.10 Cocaine abuse, uncomplicated; F17.210 Nicotine dependence, cigarettes, uncomplicated; G89.29 Other chronic pain; E78.00 Pure hypercholesterolemia, unspecified; I10 Essential (primary) hypertension; K21.9 Gastro-esophageal reflux disease without esophagitis; Z87.442 Personal history of urinary calculi; Z90.49 Acquired absence of other specified parts of digestive tract; Z98.1 Arthrodesis status; Z79.84 Long term (current) use of oral hypoglycemic drugs; Z71.51 Drug abuse counseling and surveillance of drug abuser; Z71.6 Tobacco abuse counseling
CPT/HCPCS: 36415; 70450; 71045; 76770; 80048; 80053; 80307; 81001; 82550; 82553; 82962; 83036; 84484; 85007; 85025; 87040; 87086; 93005; 93010; 99406; G0378; A9270-GY; J0696; J1644; J1815; J7030

== ENCOUNTER 2019-10-29 11:28 | Outpatient (CLI) | payer MEDICAID ==
[2019-10-29 11:58] LABS: Hematocrit 39.4 % (35.5-45.6); Hemoglobin 13.2 gm/dl (11.8-15.2); Mean Corpuscular HGB Conc 34 % (32-34); Mean Corpuscular Volume 93 fl (84-94); Platelet Count 192 K/mm3 (140-440); Red Blood Count 4.25 M/mm3 (3.65-5.03); Red Cell Distribution Width 13.6 % (13.2-15.2)
[2019-10-29 12:07] LABS: Creatinine,Urine < 4.2 mg/dL (0.1-20.0)
[2019-10-29 12:09] LABS: Bilirubin,Urine NEG (Negative); Blood,Urine NEG (Negative); Color,Urine Yellow (Yellow); Mucus,Urine FEW /HPF; Protein,Urine <15 mg/dL mg/dL (Negative); Urobilinogen,Urine < 2.0 mg/dL (<2.0)
[2019-10-29 12:15] LABS: BUN/Creatinine Ratio 12; Blood Urea Nitrogen 14 mg/dL (9-20); Calcium 9.5 mg/dL (8.4-10.2); Hemolysis Index 5
== END 2019-10-29 11:29 | disposition home or self-care (01) ==
LOC: LAB 11:28
PROVIDERS: ATTEND Internal Medicine Nephrology
DX: I12.9 Hypertensive chronic kidney disease with stage 1 through stage 4 chronic kidney disease, or unspecified chronic kidney disease (principal)
CPT/HCPCS: 36415; 80048; 81001; 82570; 83970; 84100; 84156; 85027; 87086

== ENCOUNTER 2019-11-21 06:59 | Outpatient (CLI) | payer MEDICAID ==
--- NOTE | 2019-11-21 08:42 | Magnetic Resonance Report ---
MRI CERVICAL SPINE WITHOUT AND WITH CONTRAST INDICATION / CLINICAL INFORMATION: RADICULOPATHY M54.12. TECHNIQUE: Multisequence, multiplanar images of the cervical spine were obtained. 18 cc of MultiHance was admini stered intravenously. COMPARISON: None available. FINDINGS: Previous anterior fusion changes at C3-4 is suspected which generates susceptibility artifact. CRANIOCERVICAL JUNCTION:No significant abnormality. ALIGNMENT: There is mild straightening of the normal lordosis. No subluxation is appreciated. VERTEBRAE:Normal marrow signal and vertebral body height for age. Discs: There is diffuse disc desiccation and narrowing. Partial bony fusion at C3-4 is suspected. Facet joints: No significant abnormality. VISUALIZED SPINAL CORD: No significant abnormality. [id number] ANALYSIS: C2-3: There is mild to moderate posterior and bilateral uncovertebral spurring. Right neural foramina l narrowing is estimated at 50%. C3-4: There is moderate posterior and bilateral uncovertebral spurring. Mild central canal narrowing measures 8 mm in AP dimension. There is moderate left neural foraminal narrowing estimated at 50% and severe right neural foraminal narrowing is estimated at 75% or greater. C4-5: Moderate to severe posterior and bilateral uncovertebral spurring. Posterior spurring is worse on the right side and appears to exert mild mass effect on the spinal cord. There is borderline to mi ld central canal narrowing measuring 9.5 mm in AP dimension. Bilateral neural foraminal narrowing is estimated at 50-75%. The right side appears slightly more affected. C5-6: Mild posterior and bilateral uncovertebral spurring. Bilateral neural foraminal narrowing is es timated at 25-50%. C6-7: Moderate posterior and bilateral uncovertebral spurring is identified. There appears to be a br oad-based left lateral disc protrusion which projects into the left neural foramen resulting in sever e left neural foraminal stenosis estimated at greater than 75%. There is moderate right neural forami nal stenosis estimated at 50%. C7-T1: Mild bilateral uncovertebral spurring, right greater than left. Right neural foraminal narrowi ng is estimated at 50-75%. PARASPINAL SOFT TISSUES: No significant abnormality. ADDITIONAL FINDINGS: No abnormal enhancement is detected following IV gadolinium. IMPRESSION: Stable appearance of the C4-5 anterior fusion changes. No evidence for fracture, malalignment, bone lesion or abnormal enhancement. Moderate to severe multilevel degenerative disc disease is present as outlined above. Multilevel neur al foraminal narrowing is demonstrated. Mild central canal narrowing is noted at C3-4 and C4-5. Pleas e see above. Signer Name: Alec Price Jr, MD Signed: 11/21/2019 8:38 AM Workstation Name: [id number]
== END 2019-11-21 07:00 | disposition home or self-care (01) ==
LOC: MRI 06:59
PROVIDERS: ATTEND Anesthesiology
DX: M48.02 Spinal stenosis, cervical region (principal); M54.12 Radiculopathy, cervical region
CPT/HCPCS: 72156; A9577

== ENCOUNTER 2020-08-06 06:27 | Day surgery (SDC) | payer MEDICAID ==
[2020-07-30 14:37] LABS: Alanine Aminotransferase 32 units/L (7-56); Albumin 4.2 g/dL (3.9-5); BUN/Creatinine Ratio 7; Blood Urea Nitrogen 8 mg/dL (9-20); Calcium 9.4 mg/dL (8.4-10.2); Hemolysis Index 15
[2020-07-30 14:39] LABS: Hematocrit 38.1 % (35.5-45.6); Hemoglobin 13.1 gm/dl (11.8-15.2); Mean Corpuscular HGB Conc 34 % (32-34); Mean Corpuscular Volume 92 fl (84-94); Platelet Count 199 K/mm3 (140-440); Red Blood Count 4.14 M/mm3 (3.65-5.03); Red Cell Distribution Width 13.7 % (13.2-15.2)
[~2020-08-06 06:27] MED LIST changes: -ANCEF/STERILE WATER 2 GM/20 ML IV NR; +ceFAZolin/STERILE WATER 2 GM/20 ML SYRINGE IV NR
[2020-08-06] MEDS ORDERED: LACTATED RINGERS 1,000 ML ONE (06:38)
[2020-08-06] MEDS ORDERED: ONDANSETRON 4 MG/2 ML INJ ONE (06:41)
[2020-08-06] MEDS ORDERED: LACTATED RINGERS 1,000 ML IV SCH (06:41)
[2020-08-06] MEDS ORDERED: LIDOCAINE MPF (2%) 20 MG/1 ML VIAL 5 ML ONE (06:41)
[2020-08-06] MEDS ORDERED: fentaNYL 100 MCG/2 ML INJ ONE (06:41)
[2020-08-06] MEDS ORDERED: propofoL 200 MG/20 ML VIAL IV ONE (06:41)
[2020-08-06] MEDS ORDERED: MIDAZOLAM 2 MG/2 ML INJ IV NR (07:39)
--- NOTE | 2020-08-06 07:39 | Anesthesia Consultation ---
Anesthesia Consult and Med Hx Date of service: 08/06/20 - Airway Anesthetic Teeth Evaluation: Good ROM Head & Neck: Inadequate Mental/Hyoid Distance: Adequate Mallampati Class: Class II Intubation Access Assessment: Probably Good - Pulmonary Exam CTA: Yes - Cardiac Exam Cardiac Exam: RRR - Pre-Operative Health Status ASA Pre-Surgery Classification: ASA3 Proposed Anesthetic Plan: General - Pulmonary Hx Smoking: Yes (1 PPD X 20 YRS) Hx Sleep Apnea: No ([place] PRE SCREEN HIGH RISK) - Cardiovascular System Hx Hypertension: Yes (X 7 YRS) Hx Heart Attack/AMI: No Hx Angina: No - Central Nervous System Hx Back Pain: Yes (CHRONIC, neuropathy) Hx Psychiatric Problems: Yes (Bipolar, anxiety) - Gastrointestinal Hx Gastroesophageal Reflux Disease: Yes (controlled) - Endocrine Hx Renal Disease: Yes (ARF secondary to stones, BPH) Hx Non-Insulin Dependent Diabetes: Yes - Other Systems Hx Substance Use: Yes (HX COCAINE ABUSE-STATES CLEAN X 40 YRS) Hx Cancer: No - Additional Comments Anesthesia Medical History Comments: H/O back sx, lap paz
--- NOTE | 2020-08-06 07:41 | Anesthesia Day of Surgery ---
Anesthesia Day of Surgery - Day of Surgery Patient Examined: Yes Patient H&P Reviewed: Yes Patient is NPO: Yes Beta Blockers: No Cardiac Clearance: No Pulmonary Clearance: No Robbin's Test: N/A
[2020-08-06] MEDS ORDERED: ONDANSETRON 4 MG/2 ML INJ IV PRN (08:10)
[2020-08-06] MEDS ORDERED: HYDROmorphone 1 MG/1 ML INJ IV PRN (08:10)
[2020-08-06] MEDS ORDERED: WATER FOR IRRIG STERILE 2000 ML IR ONE (09:14)
--- NOTE | 2020-08-06 09:31 | Post Operative Note ---
Date of procedure: 08/06/20 Pre-op diagnosis: hydro stones Post-op diagnosis: same Findings: bladder kidney stones Procedure: cystolithotripsy ' stents Anesthesia: GETA Surgeon: ONUR RAMIREZ Estimated blood loss: none Pathology: none Condition: stable Disposition: PACU
--- NOTE | 2020-08-06 09:33 | Discharge Summary ---
Short Stay Discharge Plan Activity: other (no straining ) Weight Bearing Status: Full Weight Bearing Diet: low fat, low cholesterol, low salt Special Instructions: other (inc fluids ) Durable Medical Equipment Needed Upon Discharge: other (home with mancuso anf j stents ) [facility] - 7 Days ONUR RAMIREZ MD [Staff Physician] - 7 Days
[2020-08-06] MEDS: HYDROmorphone 1 MG/1 ML INJ IV PRN ×2 (09:52→10:06)
[2020-08-06 10:06] VITALS: BP 130/80
--- NOTE | 2020-08-06 10:14 | Post Anesthesia Evaluation ---
- Post Anesthesia Evaluation Patient Participated: Yes Airway Patent: Yes Stable Respiratory Function: Yes Nausea/Vomiting: No Temp > 96.8F: Yes Pain Manageable: Yes Adequeate Hydration: Yes Anesthesia Complications: No Block Receding Appropriately: Not Applicable Patient on Ventilator: No
[2020-08-06] MEDS ORDERED: HYDROcodone/ACETAMINOPHEN 5-325 MG TAB PO PRN (10:30)
--- NOTE | 2020-08-06 11:08 | Operative Report ---
PREOPERATIVE DIAGNOSES: Hydronephrosis, bilateral ureteral strictures, bladder stone, kidney stone. POSTOPERATIVE DIAGNOSES: Hydronephrosis, bilateral ureteral strictures, bladder stone, kidney stone. PROCEDURES PERFORMED: Cystoscopy, urethral dilatation for stricture disease, cystolithotripsy of bladder stone, bilateral retrogrades, and bilateral stents. SURGEON: Dr. Zamarripa. ANESTHESIA: General. FINDINGS: This is a gentleman who has stones, hydronephrosis, multiple urological problems, and history of strictures. He now presents for treatment. DESCRIPTION OF PROCEDURE: The patient brought to lithotripsy unit and placed on the table. Stone was not easily seen on fluoroscopy. CT showed hydro on the left with a UPJ stone. Cystoscopy was attempted. There was stricture disease. We placed a wire, dilated his urethra and we were able to get in the bladder. The prostate was large with trilobar hypertrophy. Retrograde showed hydronephrosis on the left and a dilated right orifice. A wire coiled in the left kidney, we placed a stent and we did the same for the right. The patient tolerated the procedure well. A Councill catheter was placed. I spoke to Dr. Sykes. He will need followup procedures either percutaneous nephrolithotomy to see where the stone is because it was very difficult to see. We could not see it on either side. He was brought to recovery in stable condition. JOB# [id number] KAITY/PHONG
== END 2020-08-06 10:40 | disposition home or self-care (01) ==
LOC: OR 06:27
PROVIDERS: ATTEND Urology
DX: N13.2 Hydronephrosis with renal and ureteral calculous obstruction (principal); N21.0 Calculus in bladder; Q62.10 Congenital occlusion of ureter, unspecified; F17.210 Nicotine dependence, cigarettes, uncomplicated; G62.9 Polyneuropathy, unspecified; E78.00 Pure hypercholesterolemia, unspecified; I10 Essential (primary) hypertension; K21.9 Gastro-esophageal reflux disease without esophagitis; E11.9 Type 2 diabetes mellitus without complications; F31.9 Bipolar disorder, unspecified; F41.9 Anxiety disorder, unspecified; Z79.899 Other long term (current) drug therapy; Z79.84 Long term (current) use of oral hypoglycemic drugs; Z87.440 Personal history of urinary (tract) infections; Z90.49 Acquired absence of other specified parts of digestive tract; Z91.81 History of falling
CPT/HCPCS: 36415; 52332; 74420; 80053; 82962; 85027; A4217; C1726; C1758; C1769; C2617; J0690; J1170; J2250; J2405; J2704; J3010; J7120; Q9967

== ENCOUNTER 2021-02-22 11:36 | Outpatient (CLI) | payer MEDICAID ==
[2021-02-22 12:08] LABS: Basophils # (Auto) 0.1 K/mm3 (0.0-0.1); Basophils % (Auto) 1.3 % (0.0-1.8); Eosinophils # (Auto) 0.2 K/mm3 (0.0-0.4); Eosinophils % (Auto) 3.7 % (0.0-4.3); Hematocrit 39.9 % (35.5-45.6); Hemoglobin 13.5 gm/dl (11.8-15.2); Lymphocytes # (Auto) 2.1 K/mm3 (1.2-5.4); Lymphocytes % (Auto) 33.1 % (13.4-35.0); Mean Corpuscular HGB Conc 34 % (32-34); Mean Corpuscular Volume 92 fl (84-94); Monocytes # (Auto) 0.5 K/mm3 (0.0-0.8); Monocytes % (Auto) 7.1 % (0.0-7.3); Platelet Count 236 K/mm3 (140-440); Red Blood Count 4.35 M/mm3 (3.65-5.03); Red Cell Distribution Width 13.5 % (13.2-15.2)
[2021-02-22 12:26] LABS: BUN/Creatinine Ratio 15; Blood Urea Nitrogen 16 mg/dL (9-20); Calcium 9.7 mg/dL (8.4-10.2); Hemolysis Index 6
[2021-02-22 12:47] LABS: Bilirubin,Urine NEG (Negative); Blood,Urine NEG (Negative); Calcium Oxalate Crystals,Urine FEW; Color,Urine Yellow (Yellow); Mucus,Urine FEW /HPF; Protein,Urine <15 mg/dL mg/dL (Negative); Urobilinogen,Urine < 2.0 mg/dL (<2.0)
[2021-02-22 15:06] LABS: Creatinine,Urine 107.8 mg/dL (0.1-20.0); Protein/Creatinine Ratio,Urine 0.07
== END 2021-02-22 11:37 | disposition home or self-care (01) ==
LOC: LAB 11:36
PROVIDERS: ATTEND Internal Medicine Nephrology
DX: N18.2 Chronic kidney disease, stage 2 (mild) (principal)
CPT/HCPCS: 36415; 80048; 81001; 82570; 84156; 85025

== ENCOUNTER 2021-02-24 10:12 | Emergency (ER) | payer MEDICAID ==
[2021-02-24 10:32] VITALS: BP 133/67
--- NOTE | 2021-02-24 10:37 | Emergency Department Report ---
ED General Adult HPI - General Chief complaint: Neck Pain/Injury Stated complaint: RIGHT SHOULDER PAIN Time Seen by Provider: 02/24/21 10:31 Source: patient Mode of arrival: Ambulatory Limitations: No Limitations - History of Present Illness Initial comments: 61-year-old -[place] male patient presents with complaints of right shoulder pain radiating to his neck for the past 2 weeks. Patient states he attempted to see his PCP, however there were no appointments available and he was referred to the ED. He denies any injury to his shoulder, n umbness/tingling/weakness in his arm, difficulty moving his neck, fever/chills/sweats, chest pain, or shortness of breath. Patient rates his pain as a 7/10 in severity and describes it as a achiness. He states tizanidine is not helping. He does report history of chronic neck pain and has had surgery on his neck. - Related Data Home Medications Medication Instructions Recorded Confirmed Last Taken AtorvaSTATin [Lipitor] 40 mg PO QHS 03/07/19 08/06/20 08/05/20 08:00 Clarispray 2 spray INHALATION DAILY 03/07/19 08/06/20 08/05/20 08:00 Escitalopram [Lexapro] 10 mg PO DAILY 03/07/19 08/06/20 08/05/20 08:00 Gabapentin [Neurontin] 600 mg PO DAILY 03/07/19 08/06/20 08/06/20 04:00 Glimepiride [Amaryl] 4 mg PO QAM 03/07/19 08/06/20 08/05/20 08:00 Metformin HCl [metFORMIN] 1,000 mg PO DAILY 03/07/19 08/06/20 08/05/20 08:00 QUEtiapine [SEROquel] 200 mg PO DAILY 03/07/19 08/06/20 08/05/20 08:00 lamoTRIgine [Lamictal] 50 mg PO BID 03/07/19 08/06/20 08/05/20 08:00 lisinopriL [Zestril TAB] 40 mg PO QDAY 03/07/19 08/06/20 08/05/20 08:00 Finasteride [Proscar] 5 mg PO DAILY 07/30/20 08/06/20 08/05/20 08:00 Tadalafil [Cialis] 10 mg PO PRN PRN 07/30/20 08/06/20 08/05/20 08:00 Tamsulosin [Flomax] 0.4 mg PO QDAY 07/30/20 08/06/20 08/05/20 08:00 Previous Rx's Medication Instructions Recorded Last Taken Type Acetaminophen/Codeine [Tylenol 1 tab PO Q8H PRN #8 tab 02/24/21 Unknown Rx /Codeine # 3 tab] Prednisone [predniSONE 10 mg 10 mg PO .TAPER #1 tab.ds.pk 02/24/21 Unknown Rx (6-Day Pack, 21 Tabs)] Allergies Allergy/AdvReac Type Severity Reaction Status Date / Time No Known Allergies Allergy Verified 03/25/20 16:23 ED Review of Systems ROS: Stated complaint: RIGHT SHOULDER PAIN Other details as noted in HPI Constitutional: denies: chills, diaphoresis, fever, malaise, weakness Respiratory: denies: cough, shortness of breath Cardiovascular: denies: chest pain, palpitations Musculoskeletal: arthralgia. denies: joint swelling Neurological: denies: numbness, paresthesias ED Past Medical Hx - Past Medical History Hx Hypertension: Yes (X 7 YRS) Hx Heart Attack/AMI: No Hx Diabetes: Yes Hx GERD: Yes Hx Renal Disease: Yes (ARF secondary to stones, BPH) Hx Kidney Stones: Yes Hx Psychiatric Treatment: Yes (anxiety) Hx Tuberculosis: Yes (POSITIVE SKIN TEST,TOOK TX, NEG CXR -20 YRS AGO) Hx HIV: No Additional medical history: high cholesterol. BPH - Surgical History Hx Cholecystectomy: Yes Additional Surgical History: Cervical spine surgery - Social History Smoking Status: Current Every Day Smoker Substance Use Type: Alcohol - Medications Home Medications: Home Medications Medication Instructions Recorded Confirmed Last Taken Type AtorvaSTATin [Lipitor] 40 mg PO QHS 03/07/19 08/06/20 08/05/20 08:00 History Clarispray 2 spray INHALATION DAILY 03/07/19 08/06/20 08/05/20 08:00 History Escitalopram [Lexapro] 10 mg PO DAILY 03/07/19 08/06/20 08/05/20 08:00 History Gabapentin [Neurontin] 600 mg PO DAILY 03/07/19 08/06/20 08/06/20 04:00 History Glimepiride [Amaryl] 4 mg PO QAM 03/07/19 08/06/20 08/05/20 08:00 History Metformin HCl [metFORMIN] 1,000 mg PO DAILY 03/07/19 08/06/20 08/05/20 08:00 History QUEtiapine [SEROquel] 200 mg PO DAILY 03/07/19 08/06/20 08/05/20 08:00 History lamoTRIgine [Lamictal] 50 mg PO BID 03/07/19 08/06/20 08/05/20 08:00 History lisinopriL [Zestril TAB] 40 mg PO QDAY 03/07/19 08/06/20 08/05/20 08:00 History Finasteride [Proscar] 5 mg PO DAILY 07/30/20 08/06/20 08/05/20 08:00 History Tadalafil [Cialis] 10 mg PO PRN PRN 07/30/20 08/06/20 08/05/20 08:00 History Tamsulosin [Flomax] 0.4 mg PO QDAY 07/30/20 08/06/20 08/05/20 08:00 History Acetaminophen/Codeine [Tylenol 1 tab PO Q8H PRN #8 tab 02/24/21 Unknown Rx /Codeine # 3 tab] Prednisone [predniSONE 10 mg 10 mg PO .TAPER #1 tab.ds.pk 02/24/21 Unknown Rx (6-Day Pack, 21 Tabs)] ED Physical Exam - General Limitations: No Limitations General appearance: alert, in no apparent distress - Head Head exam: Present: atraumatic, normocephalic - Eye Eye exam: Present: normal appearance - ENT ENT exam: Present: mucous membranes moist - Neck Neck exam: Present: normal inspection, full ROM. Absent: tenderness - Respiratory Respiratory exam: Present: normal lung sounds bilaterally. Absent: respiratory distress - Cardiovascular Cardiovascular Exam: Present: regular rate, normal rhythm. Absent: systolic murmur, diastolic murmur, rubs, gallop - Expanded Upper Extremity Exam Right Shoulder Exam: Present: tenderness (Tenderness to palpation noted to the humeral head and upper scapula). Absent: full ROM (Limited abduction), swelling, deformity, crepidus, erythema, tenderness over AC joint Upper Arm exam: Absent: tenderness Elbow exam: Present: normal inspection, full ROM Forearm Wrist exam: Present: normal inspection, full ROM Hand Wrist exam: Present: normal inspection, full ROM Neurosensory exam: Present: radial nerve intact, ulnar nerve intact Vascular: Absent: vascular compromise - Back Exam Back exam: Present: normal inspection, full ROM - Neurological Exam Neurological exam: Present: alert, oriented X3 - Psychiatric Psychiatric exam: Present: normal affect, normal mood - Skin Skin exam: Present: warm, dry, intact, normal color. Absent: rash ED Course Vital Signs 02/24/21 10:31 Temperature 98.4 F Pulse Rate 86 Respiratory 20 Rate Blood Pressure 133/67 O2 Sat by Pulse 98 Oximetry ED Medical Decision Making - Radiology Data Radiology results: report reviewed RIGHT SHOULDER 3 VIEWS INDICATION / CLINICAL INFORMATION: pain, decreased ROM, no injury COMPARISON: None available. FINDINGS: BONES / JOINT(S): No acute fracture or subluxation. Mild DJD at the glenohumeral joint. SOFT TISSUES: Chronic calcific tendinosis at the rotator cuff at multiple sites. ADDITIONAL FINDINGS: None. - Medical Decision Making 61-year-old -[place] male patient presents with complaints of right shoulder pain radiating to his neck for the past 2 weeks. Patient states he attempted to see his PCP, however there were no appointments available and he was referred to the ED. He denies any injury to his shoulder, numbness/tingling/weakness in his arm, difficulty moving his neck, f ever/chills/sweats, chest pain, or shortness of breath. Patient rates his pain as a 7/10 in severity and describes it as a achiness. He states tizanidine is not helping. He does report history of chronic neck pain and has had surgery on his neck. X-ray shows the following BONES / JOINT(S): No acute fracture or subluxation. Mild DJD at the glenohumeral joint. SOFT TISSUES: Chronic calcific tendinosis at the rotator cuff at multiple sites. Patient states he is unable to take NSAIDs due to recommendations from his primary care doctor. We will treat with prednisone Dosepak and have patient follow-up with orthopedics. Patient is a diabetic and states his sugar normally runs 100-1 20. Discussed importance of sugar checks and dietary changes while taking steroids. He is well-appearing, his vitals are normal, he is stable for discharge home. Discussed strict return precautions in detail with patient who verbalizes understanding. Critical care attestation.: If time is entered above; I have spent that time in minutes in the direct care of this critically ill patient, excluding procedure time. ED Disposition Clinical Impression: Right shoulder pain Disposition: DC- TO HOME OR SELFCARE Is pt being admited?: No Condition: Stable Instructions: Shoulder Pain Prescriptions: Prednisone [predniSONE 10 mg (6-Day Pack, 21 Tabs)] 10 mg PO .TAPER #1 tab.ds.pk Acetaminophen/Codeine [Tylenol /Codeine # 3 tab] 1 tab PO Q8H PRN #8 tab PRN Reason: Pain , Severe (7-10) Referrals: [facility] [Provider Group] - 3-5 Days
--- NOTE | 2021-02-24 11:03 | XRay Report ---
RIGHT SHOULDER 3 VIEWS INDICATION / CLINICAL INFORMATION: pain, decreased ROM, no injury COMPARISON: None available. FINDINGS: BONES / JOINT(S): No acute fracture or subluxation. Mild DJD at the glenohumeral joint. SOFT TISSUES: Chronic calcific tendinosis at the rotator cuff at multiple sites. ADDITIONAL FINDINGS: None. Signer Name: Sidney Theodore MD Signed: 02/24/2021 10:59 AM Workstation Name: [id number]
== END 2021-02-24 15:27 | disposition home or self-care (01) ==
LOC: ED 10:12
DX: M25.511 Pain in right shoulder (principal); I10 Essential (primary) hypertension; E11.9 Type 2 diabetes mellitus without complications; K21.9 Gastro-esophageal reflux disease without esophagitis; F41.9 Anxiety disorder, unspecified; Z90.49 Acquired absence of other specified parts of digestive tract; Z98.890 Other specified postprocedural states; Z79.899 Other long term (current) drug therapy

== ENCOUNTER 2021-03-17 05:52 | Day surgery (SDC) | payer MEDICAID ==
[~2021-03-17 05:52] MED LIST changes: +IOHEXOL 300 MG/ML 50ML IV ONE; +WATER FOR IRRIG STERILE 1,500 ML BOTTLE IR ONE; +WATER FOR IRRIG STERILE 2000 ML IR ONE; +metroNIDAZOLE/NS 500 MG/100 ML 500 MG/100 ML BAG IV NR
[2021-03-17] MEDS ORDERED: BACTERIOSTATIC SODIUM CHLORIDE 0.9% 30 ML VIAL INFILTRATI ONE (06:24)
[2021-03-17] MEDS ORDERED: LACTATED RINGERS 1,000 ML IV SCH (06:30)
[2021-03-17] MEDS ORDERED: FAMOTIDINE 20 MG/2 ML INJ IV ONE (07:22)
[2021-03-17] MEDS ORDERED: fentaNYL 100 MCG/2 ML INJ ONE (07:26)
[2021-03-17] MEDS ORDERED: propofoL 200 MG/20 ML VIAL IV ONE (07:26)
[2021-03-17] MEDS ORDERED: LIDOCAINE MPF (2%) 20 MG/1 ML VIAL 5 ML ONE (07:26)
--- NOTE | 2021-03-17 07:27 | Anesthesia Day of Surgery ---
Anesthesia Day of Surgery - Day of Surgery Patient Examined: Yes Patient H&P Reviewed: Yes Patient is NPO: Yes
--- NOTE | 2021-03-17 07:27 | Anesthesia Consultation ---
Anesthesia Consult and Med Hx Date of service: 03/17/21 - Airway Anesthetic Teeth Evaluation: Good ROM Head & Neck: Adequate Mental/Hyoid Distance: Adequate Mallampati Class: Class III Intubation Access Assessment: Possibly Difficult - Pre-Operative Health Status ASA Pre-Surgery Classification: ASA2 Proposed Anesthetic Plan: General - Pulmonary Hx Smoking: Yes (1 PPD X 20 YRS) Hx Sleep Apnea: No (snoring, [place] PRE SCREEN HIGH RISK) - Cardiovascular System Hx Hypertension: Yes (X 8 YRS) - Central Nervous System Hx Back Pain: Yes (HX CHRONIC NECK AND BACK PAIN WITH PAIN TO LEGS) Hx Psychiatric Problems: Yes (depression) - Gastrointestinal Hx Gastroesophageal Reflux Disease: Yes (controlled) - Endocrine Hx Renal Disease: Yes (ARF secondary to stones, BPH) Hx Non-Insulin Dependent Diabetes: Yes - Hematic Hx Anemia: No - Other Systems Hx Substance Use: Yes (HX COCAINE ABUSE-STATES CLEAN X 40 YRS) Hx Cancer: No
[2021-03-17] MEDS ORDERED: IOHEXOL 300 MG/ML 50ML IV ONE (07:55)
[2021-03-17] MEDS ORDERED: WATER FOR IRRIG STERILE 1,500 ML BOTTLE IR ONE (07:55)
[2021-03-17] MEDS ORDERED: WATER FOR IRRIG STERILE 2000 ML IR ONE (07:55)
[2021-03-17] MEDS ORDERED: HYDROmorphone 1 MG/1 ML INJ IV SCH (08:30)
[2021-03-17] MEDS ORDERED: MIDAZOLAM 2 MG/2 ML INJ IV SCH (08:30)
[2021-03-17] MEDS ORDERED: FAMOTIDINE 20 MG/2 ML INJ IV NR (08:30)
[2021-03-17] MEDS ORDERED: HYDROmorphone 1 MG/1 ML INJ IV PRN ×2 (08:30)
[2021-03-17] MEDS ORDERED: ONDANSETRON 4 MG/2 ML INJ IV PRN (08:30)
--- NOTE | 2021-03-17 08:38 | Short Stay Summary ---
Short Stay Documentation Date of service: 03/17/21 - History H&P: obtained from office - Allergies and Medications Current Medications: Allergies No Known Allergies Allergy (Verified 03/25/20 16:23) Home Medications Medication Instructions Recorded Confirmed Last Taken Type AtorvaSTATin [Lipitor] 40 mg PO QHS 03/07/19 03/10/21 03/16/21 History Escitalopram [Lexapro] 10 mg PO DAILY 03/07/19 03/10/21 03/16/21 History Gabapentin [Neurontin] 600 mg PO DAILY 03/07/19 03/10/21 03/16/21 History Glimepiride [Amaryl] 4 mg PO QAM 03/07/19 03/10/21 03/16/21 History Metformin HCl [metFORMIN] 1,000 mg PO DAILY 03/07/19 03/10/21 03/16/21 History QUEtiapine [SEROquel] 200 mg PO DAILY 03/07/19 03/10/21 03/16/21 History lamoTRIgine [Lamictal] 50 mg PO BID 03/07/19 03/10/21 03/16/21 History lisinopriL [Zestril TAB] 40 mg PO QDAY 03/07/19 03/10/21 03/16/21 History Finasteride [Proscar] 5 mg PO DAILY 07/30/20 03/10/21 03/16/21 History Tamsulosin [Flomax] 0.4 mg PO QDAY 07/30/20 03/10/21 03/16/21 History Active Medications Cefazolin Sodium (Cefazolin/Sterile Water 2 Gm/20 Ml Syringe) 2 gm IV PREOP NR Stop: 03/17/21 20:00 Famotidine (Famotidine 20 Mg/2 Ml Inj) 20 mg IV PREOP NR Stop: 03/17/21 21:00 Hydromorphone HCl (Hydromorphone 1 Mg/1 Ml Inj) 0.5 mg IV ONCE TEO Stop: 03/17/21 21:00 Hydromorphone HCl (Hydromorphone 1 Mg/1 Ml Inj) 0.25 mg IV Q10MIN PRN PRN Reason: Pain, Moderate (4-6) Stop: 03/17/21 17:00 Hydromorphone HCl (Hydromorphone 1 Mg/1 Ml Inj) 0.5 mg IV Q10MIN PRN PRN Reason: Pain , Severe (7-10) Stop: 03/17/21 17:00 Metronidazole (Flagyl 500 Mg/100 Ml) 500 mg in 100 mls @ 200 mls/hr IV PREOP NR; Protocol Stop: 03/17/21 20:00 Lactated Ringer's (Lactated Ringers) 1,000 mls @ 100 mls/hr IV DIRECT TEO Last Admin: 03/17/21 07:05 Dose: 100 mls/hr Documented by: Midazolam HCl (Midazolam 2 Mg/2 Ml Inj) 2 mg IV ONCE TEO Stop: 03/17/21 21:00 Ondansetron HCl (Ondansetron 4 Mg/2 Ml Inj) 4 mg IV ONCE PRN PRN Reason: Nausea And Vomiting Stop: 03/17/21 18:00 - Brief post op/procedure progress note Date of procedure: 03/17/21 Pre-op diagnosis: left ureteral stone Post-op diagnosis: other (same, left ureteral stricture (1cm below upper si joint)) Procedure: cysto, rpg, left ureteroscopy, stent with external string (6F x 26cm) Anesthesia: JAVIER Surgeon: ELPIDIO CABA Condition: stable - Hospital course Hospital course: norco, bactrim, post op info on chart - Disposition Condition at discharge: Stable Disposition: DC-01 TO HOME OR SELFCARE Short Stay Discharge Plan Follow up with: PRIMARY CARE, [Primary Care Provider] - 7 Days
[2021-03-17] MEDS ORDERED: DEXTROSE 50% IN WATER (25GM) 50 ML SYRINGE IV ONE ×2 (09:16→09:18)
--- NOTE | 2021-03-17 09:37 | Operative Report ---
DATE OF SURGERY: 03/17/2021 PREOPERATIVE DIAGNOSIS: Left ureteral stone, 5 mm. POSTOPERATIVE DIAGNOSES: Left ureteral stone, 5 mm, passed stone; distal ureteral stricture. PROCEDURE PERFORMED: Cystoscopy, bilateral retrograde pyelograms, left ureteroscopy, dilation of ureteral stricture, double-J stent placement with an external string (6-Swazi 26 cm). SURGEON: Kirit Sykes MD ANESTHESIA: General. ESTIMATED BLOOD LOSS: Minimal. FLUIDS: Crystalloid. COMPLICATIONS: No complications. INDICATIONS: A 61-year-old gentleman known to our service with a long history of stones, who presents to the office with left flank pain. CT of abdomen and pelvis revealed a 5 mm proximal ureteral stone. The patient failed conservative therapy. Also of note, he has a history of spine disease and seeking his new pain management physician. DESCRIPTION OF PROCEDURE: The patient was taken to the operative suite, placed in a supine position. After adequate general anesthesia, placed in the dorsal lithotomy position, prepped and draped in a sterile fashion. Pancystourethroscopy was performed with a 22 Swazi Storz cystoscope. No urethral abnormalities. Prostate, minimally obstructing. He does have mild high riding bladder neck. Bladder, no tumors or stones were noted. He has mild diffuse trabeculation. Bilateral retrograde pyelograms were obtained with an 8-Swazi [place] catheter and 8 mL of contrast. No filling defects or obstruction on the right. Left side was narrowing distally prompting further evaluation. Two 0.035 Glidewires were placed. Rigid ureteroscopy was performed at the level of the upper SI joint, approximately 1 cm below, it was a stricture. I was able to dilate the stricture with the scope, advanced up to the renal pelvis. No obvious stone could be appreciated other than some edema. Scope was removed. A 6 Swazi 26 cm stent was placed with an external string. Rectal exam was benign. He was extubated and taken to recovery room. He will go home on [place] 10 and Bactrim. TID: [id number] RECEIPT: [id number] MAUREEN/RODRIGUEZ
[2021-03-17 10:19] VITALS: BP 140/77
--- NOTE | 2021-03-17 11:58 | Fluoroscopy Report ---
FL retrograde urography Technique: Intraoperative fluoroscopic guidance was provided. Fluoroscopy time: 0.7 minutes. Fluoroscopy images: 9. Findings/Impression: Intraoperative fluoroscopic guidance for bilateral retrograde pyelogram and left ureteral stent placement. Mild prominence of the right renal collecting system noted. Please see pro cedure report for further details. Signer Name: Param Baumann MD Signed: 03/17/2021 11:53 AM Workstation Name: [employer]
== END 2021-03-17 10:00 | disposition home or self-care (01) ==
LOC: OR 05:52
PROVIDERS: ATTEND Urology
DX: N20.1 Calculus of ureter (principal); N13.5 Crossing vessel and stricture of ureter without hydronephrosis; F17.210 Nicotine dependence, cigarettes, uncomplicated; G62.9 Polyneuropathy, unspecified; E78.00 Pure hypercholesterolemia, unspecified; I10 Essential (primary) hypertension; K21.9 Gastro-esophageal reflux disease without esophagitis; M19.90 Unspecified osteoarthritis, unspecified site; E11.9 Type 2 diabetes mellitus without complications; F32.9 Major depressive disorder, single episode, unspecified; F41.9 Anxiety disorder, unspecified; Z98.890 Other specified postprocedural states; Z79.899 Other long term (current) drug therapy; Z79.84 Long term (current) use of oral hypoglycemic drugs; Z87.440 Personal history of urinary (tract) infections; Z90.49 Acquired absence of other specified parts of digestive tract
CPT/HCPCS: 52332; 52344; 74420; 82962; A4217; C1758; C1769; C2617; J0690; J1170; J2250; J2405; J2704; J7120; Q9967; J3010

== ENCOUNTER 2021-03-20 19:19 | Emergency (ER) | payer MEDICAID ==
[2021-03-20 20:02] LABS: Basophils # (Auto) 0.1 K/mm3 (0.0-0.1); Basophils % (Auto) 1.5 % (0.0-1.8); Eosinophils # (Auto) 0.3 K/mm3 (0.0-0.4); Eosinophils % (Auto) 4.3 % (0.0-4.3); Hematocrit 35.6 % (35.5-45.6); Hemoglobin 12.2 gm/dl (11.8-15.2); Lymphocytes # (Auto) 2.2 K/mm3 (1.2-5.4); Lymphocytes % (Auto) 30.5 % (13.4-35.0); Mean Corpuscular HGB Conc 34 % (32-34); Mean Corpuscular Volume 93 fl (84-94); Monocytes # (Auto) 0.6 K/mm3 (0.0-0.8); Platelet Count 187 K/mm3 (140-440); Red Blood Count 3.84 M/mm3 (3.65-5.03); Red Cell Distribution Width 13.5 % (13.2-15.2)
--- NOTE | 2021-03-20 20:07 | XRay Report ---
CHEST 1 VIEW 03/20/2021 7:52 PM INDICATION / CLINICAL INFORMATION: Weakness. COMPARISON: None available. FINDINGS: SUPPORT DEVICES: None. HEART / MEDIASTINUM: No significant abnormality. LUNGS / PLEURA: No significant pulmonary or pleural abnormality. No pneumothorax. ADDITIONAL FINDINGS: No significant additional findings. IMPRESSION: No acute abnormality. Signer Name: Sidney Theodore MD Signed: 03/20/2021 8:03 PM Workstation Name: [id number]
[2021-03-20 20:14] LABS: Alanine Aminotransferase 17 units/L (7-56); Albumin 3.8 g/dL (3.9-5); BUN/Creatinine Ratio 10; Blood Urea Nitrogen 15 mg/dL (9-20); Calcium 9.5 mg/dL (8.4-10.2); Hemolysis Index 9
[2021-03-21 02:09] VITALS: BP 104/53
[2021-03-21] MEDS ORDERED: SODIUM CHLORIDE 0.9% 1000 ML 1,000 ML IV ONE (02:22)
--- NOTE | 2021-03-21 02:38 | Emergency Department Report ---
- General Chief complaint: Weakness Stated complaint: DIZZINESS/WEAKNESS Time Seen by Provider: 03/21/21 01:51 Source: patient Mode of arrival: Ambulatory Limitations: No Limitations - History of Present Illness Initial comments: Patient is a 61-year-old male with past medical history of hypertension diabetes and hyperlipidemia as well as enlarged prostate who presents to the emergency department with complaint of feeling lightheaded and dizzy he stated symptoms started around 1 PM he also had some blurry vision. Patient states that he was sitting in a chair when his symptoms started he takes Metformin for his diabetes and noted his blood sugar was low at 68 when he initially had symptoms he denies any drugs or alcohol recently denies having chest pain or shortness of breath but still feels lightheaded and dizzy and reports he still has blurry vision in both eyes. He also notes trouble with walking. MD Complaint: generalized weakness - Related Data Home Medications Medication Instructions Recorded Confirmed Last Taken AtorvaSTATin [Lipitor] 40 mg PO QHS 03/07/19 03/10/21 03/16/21 Escitalopram [Lexapro] 10 mg PO DAILY 03/07/19 03/10/21 03/16/21 Gabapentin [Neurontin] 600 mg PO DAILY 03/07/19 03/10/21 03/16/21 Glimepiride [Amaryl] 4 mg PO QAM 03/07/19 03/10/21 03/16/21 Metformin HCl [metFORMIN] 1,000 mg PO DAILY 03/07/19 03/10/21 03/16/21 QUEtiapine [SEROquel] 200 mg PO DAILY 03/07/19 03/10/21 03/16/21 lamoTRIgine [Lamictal] 50 mg PO BID 03/07/19 03/10/21 03/16/21 lisinopriL [Zestril TAB] 40 mg PO QDAY 03/07/19 03/10/21 03/16/21 Finasteride [Proscar] 5 mg PO DAILY 07/30/20 03/10/21 03/16/21 Tamsulosin [Flomax] 0.4 mg PO QDAY 07/30/20 03/10/21 03/16/21 Allergies Allergy/AdvReac Type Severity Reaction Status Date / Time No Known Allergies Allergy Verified 03/25/20 16:23 ED Review of Systems ROS: Stated complaint: DIZZINESS/WEAKNESS Other details as noted in HPI Constitutional: denies: chills, fever Eyes: denies: eye discharge ENT: denies: dental pain Respiratory: denies: shortness of breath Cardiovascular: denies: chest pain Endocrine: no symptoms reported Gastrointestinal: denies: nausea, vomiting Genitourinary: denies: frequency Musculoskeletal: denies: joint swelling Skin: denies: rash Neurological: weakness, abnormal gait Psychiatric: denies: anxiety, depression Hematological/Lymphatic: denies: easy bleeding ED Past Medical Hx - Past Medical History Previous Medical History?: Yes Hx Hypertension: Yes (X 8 YRS) Hx Diabetes: Yes Hx GERD: Yes (TAKES OTC MEDS NEEDED) Hx Renal Disease: Yes (ARF secondary to stones, BPH) Hx Arthritis: Yes (SHOULDERS,LOW BACK. S/P ACF) Hx Kidney Stones: Yes Hx Psychiatric Treatment: Yes (anxiety) Hx Tuberculosis: Yes (POSITIVE SKIN TEST,TOOK TX, NEG CXR -20 YRS AGO) Hx HIV: No Additional medical history: high cholesterol. BPH - Surgical History Past Surgical History?: Yes Hx Cholecystectomy: Yes Additional Surgical History: Cervical spine surgery - Social History Smoking Status: Current Every Day Smoker - Medications Home Medications: Home Medications Medication Instructions Recorded Confirmed Last Taken Type AtorvaSTATin [Lipitor] 40 mg PO QHS 03/07/19 03/10/21 03/16/21 History Escitalopram [Lexapro] 10 mg PO DAILY 03/07/19 03/10/21 03/16/21 History Gabapentin [Neurontin] 600 mg PO DAILY 03/07/19 03/10/21 03/16/21 History Glimepiride [Amaryl] 4 mg PO QAM 03/07/19 03/10/21 03/16/21 History Metformin HCl [metFORMIN] 1,000 mg PO DAILY 03/07/19 03/10/21 03/16/21 History QUEtiapine [SEROquel] 200 mg PO DAILY 03/07/19 03/10/21 03/16/21 History lamoTRIgine [Lamictal] 50 mg PO BID 03/07/19 03/10/21 03/16/21 History lisinopriL [Zestril TAB] 40 mg PO QDAY 03/07/19 03/10/21 03/16/21 History Finasteride [Proscar] 5 mg PO DAILY 07/30/20 03/10/21 03/16/21 History Tamsulosin [Flomax] 0.4 mg PO QDAY 07/30/20 03/10/21 03/16/21 History ED Physical Exam - General Limitations: No Limitations General appearance: alert, in no apparent distress - Head Head exam: Present: atraumatic, normocephalic - Eye Eye exam: Present: normal appearance Pupils: Present: normal accommodation - ENT ENT exam: Present: normal exam - Neck Neck exam: Present: normal inspection - Respiratory Respiratory exam: Present: normal lung sounds bilaterally, respiratory distress - Cardiovascular Cardiovascular Exam: Present: regular rate, normal rhythm - GI/Abdominal GI/Abdominal exam: Present: soft. 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, mild weakness in the lower extremities right greater than left) - Psychiatric Psychiatric exam: Present: normal affect, normal mood - Skin Skin exam: Present: warm, dry, intact ED Course Vital Signs 03/20/21 03/20/21 03/21/21 19:33 20:04 01:52 Temperature 98.3 F Pulse Rate 88 56 L Respiratory 16 16 Rate Blood Pressure 76/43 Blood Pressure 96/55 [Left] O2 Sat by Pulse 97 98 Oximetry 03/21/21 03/21/21 03/21/21 02:01 03:01 04:56 Temperature 98.2 F Pulse Rate 66 70 77 Respiratory 13 20 16 Rate Blood Pressure 104/53 104/53 Blood Pressure 104/53 [Left] O2 Sat by Pulse 99 100 100 Oximetry - Reevaluation(s) Reevaluation #1: 03/21/21 05:00 Patient reports that he no longer feels lightheaded or dizzy. He also states that he does not feel weak anymore and states he ambulated to the bathroom with no issue. I reevaluated patient and reassess his neuro exam. Patient has no upper motor extremity weakness or numbness. He has excellent telecommunication equipment repairer strength. He also has excellent lower extremity strength and ambulates without any difficulty or abnormality in his gait. Initial exam not consistent with an acute stroke as he had upper and LE weakness. Given this and the patient feels comfortable with discharge plan for patient to be discharged with follow-up with his urologist. He states that his urologist was aware that he had an infection and has been treating it and covering it. At this time patient does not appear septic the weakness that they have has resolved with IV fluids so we will plan for dischar ge with close follow-up. 03/21/21 21:37 ED Medical Decision Making - Lab Data Result diagrams: 03/20/21 19:38 03/20/21 19:38 - EKG Data -: EKG Interpreted by Me EKG shows normal: sinus rhythm Rate: normal - EKG Data Interpretation: normal EKG - Medical Decision Making Patient is a 61-year-old male who presents to the emergency department with complaints of generalized weakness as well as feeling lightheaded and dizzy earlier today around 1 PM. He currently still feels lightheaded dizzy and has some blurry vision in both eyes. He has a history of diabetes with blood sugar was initially low when he started having symptoms. On my exam unsure if this is due to patient participation but he appears to have some upper extremity weakness as well as some lower extremity weakness and also an abnormal gait. Plan for CT head and patient need to be admitted for further evaluation. Critical care attestation.: If time is entered above; I have spent that time in minutes in the direct care of this critically ill patient, excluding procedure time. ED Disposition Clinical Impression: Acute urinary tract infection Disposition: TO HOME OR SELFCARE Is pt being admited?: No Does the pt Need Aspirin: No Condition: Stable Instructions: Urinary Tract Infection, Adult Additional Instructions: If you develop fever or have weakness again please return to the emergency department so we can reevaluate you. Referrals: [facility] MD CAPRICE [Primary Care Provider] - 3-5 Days ELPIDIO CABA MD [Staff Physician] - 3-5 Days Time of Disposition: 05:02
[2021-03-21 02:52] LABS: Bacteria,Urine 1+ /HPF (Negative); Bilirubin,Urine NEG (Negative); Blood,Urine LG (Negative); Calcium Oxalate Crystals,Urine 2+; Color,Urine Amber (Yellow); Mucus,Urine 2+ /HPF; Urobilinogen,Urine < 2.0 mg/dL (<2.0)
[2021-03-21 02:54] LABS: Protein,Urine >500 mg/dL (Negative); RBC,Urine > 182.0 /HPF (0.0-6.0); WBC,Urine > 182.0 /HPF (0.0-6.0)
--- NOTE | 2021-03-21 03:01 | Cat Scan Report ---
CT head/brain wo con INDICATION: generalized weakness; abnormal gait. TECHNIQUE: Routine CT head. All CT scans at this location are performed using CT dose reduction for A MIRIAN by means of automated exposure control. COMPARISON: 07/23/2019 FINDINGS: Intracranial: Cordero-white matter differentiation is maintained. No intracranial hemorrhage. No extra a xial collection. No hydrocephalus. No herniation. Sinuses: Paranasal sinuses and mastoid air cells are essentially clear. Orbits: Globes are intact. Calvarium: No acute fracture. IMPRESSION: 1. No acute intracranial abnormality. Signer Name: Deny Esparza MD Signed: 03/21/2021 2:56 AM Workstation Name: [id number]
[2021-03-21] MEDS ORDERED: cefTRIAXone/NS 1 GM/50 ML 1 GM/50 ML BAG IV ONE (03:20)
--- NOTE | 2021-03-25 10:55 | Electrocardiograph Report ---
[facility] [place] Test Date: 2021-03-20 Test Time: 19:43:29 Pat Name: JUNIOR ADAME Department: Room: Gender: M Electronic Security Technician: KINZA Rabago : 1960 Requested By: MAYRA SMITH Order Number: [id number] Reading MD: Gil Walden Measurements Intervals [place]en Rate: 67 P: 44 IA: 123 QRS: 60 QRSD: 69 T: 39 QT: 333 QTc: 353 Interpretive Statements Sinus rhythm No previous ECG available for comparison Electronically Signed On 03-25-2021 10:55:07 EDT by Gil Walden
== END 2021-03-21 05:16 | disposition home or self-care (01) ==
LOC: ED 19:19
DX: N39.0 Urinary tract infection, site not specified (principal); R42 Dizziness and giddiness; I10 Essential (primary) hypertension; E11.9 Type 2 diabetes mellitus without complications; K21.9 Gastro-esophageal reflux disease without esophagitis; M19.90 Unspecified osteoarthritis, unspecified site; F41.9 Anxiety disorder, unspecified; E78.00 Pure hypercholesterolemia, unspecified; F17.200 Nicotine dependence, unspecified, uncomplicated; Z87.442 Personal history of urinary calculi; Z79.899 Other long term (current) drug therapy; Z90.49 Acquired absence of other specified parts of digestive tract
CPT/HCPCS: 36415; 70450; 71045; 80053; 81001; 82550; 82962; 83735; 84484; 85025; 93005; 96361; 96365; 99284; J0696; J7030

== ENCOUNTER 2021-07-25 10:03 | Emergency (ER) | payer MEDICAID ==
[2021-07-25 10:10] VITALS: BP 131/71
--- NOTE | 2021-07-25 10:35 | Emergency Department Report ---
Upper Extremity - HPI Chief Complaint: Extremity Injury, Upper Stated Complaint: RGHT ARM PAIN/ 1WK Time Seen by Provider: 07/25/21 10:18 Upper Extremity: Right Shoulder Occurred When: >5 Days Severity: moderate Symptoms: Yes Pain with Movement, Yes Limited Range of Movement, No Deformity Other History: 61-year-old -Maur[place] male presents to the emergency room for chronic right shoulder pain. Patient states he has been taking gabapentin Robaxin and Tylenol and arthritis. 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 Patient reports his pain is worse when he tries to bring his arm down from having it lifted up. He denies any recent trauma. No fevers no chills. ED Review of Systems ROS: Stated complaint: RGHT ARM PAIN/ 1WK Other details as noted in HPI Comment: All other systems reviewed and negative ED Past Medical Hx - Past Medical History Previous Medical History?: Yes Hx Hypertension: Yes (X 8 YRS) Hx Diabetes: Yes Hx GERD: Yes (TAKES OTC MEDS NEEDED) Hx Renal Disease: Yes (ARF secondary to stones, BPH) Hx Arthritis: Yes (SHOULDERS,LOW BACK. S/P ACF) Hx Kidney Stones: Yes Hx Psychiatric Treatment: Yes (anxiety) Hx Tuberculosis: Yes (POSITIVE SKIN TEST,TOOK TX, NEG CXR -20 YRS AGO) Hx HIV: No Additional medical history: high cholesterol. BPH - Surgical History Past Surgical History?: Yes Hx Cholecystectomy: Yes Additional Surgical History: Cervical spine surgery - Social History Smoking Status: Current Every Day Smoker - Medications Home Medications: Home Medications Medication Instructions Recorded Confirmed Last Taken Type AtorvaSTATin [Lipitor] 40 mg PO QHS 03/07/19 03/10/21 03/16/21 History Escitalopram [Lexapro] 10 mg PO DAILY 03/07/19 03/10/21 03/16/21 History Gabapentin [Neurontin] 600 mg PO DAILY 03/07/19 03/10/21 03/16/21 History Glimepiride [Amaryl] 4 mg PO QAM 03/07/19 03/10/21 03/16/21 History Metformin HCl [metFORMIN] 1,000 mg PO DAILY 03/07/19 03/10/21 03/16/21 History QUEtiapine [SEROquel] 200 mg PO DAILY 03/07/19 03/10/21 03/16/21 History lamoTRIgine [Lamictal] 50 mg PO BID 03/07/19 03/10/21 03/16/21 History lisinopriL [Zestril TAB] 40 mg PO QDAY 03/07/19 03/10/21 03/16/21 History Finasteride [Proscar] 5 mg PO DAILY 07/30/20 03/10/21 03/16/21 History Tamsulosin [Flomax] 0.4 mg PO QDAY 07/30/20 03/10/21 03/16/21 History traMADoL [Ultram 50 MG tab] 50 mg PO Q6HR PRN #12 tablet 07/25/21 Unknown Rx Upper Extremity Exam - Exam General: Vital signs noted. No distress. Alert and acting appropriately. Head and Torso: No HEENT Abnormality, No Neck Tenderness, No Chest/Lungs Abnormality, No Abdominal Tenderness, No Back Tenderness Shoulder Exam: Yes Shoulder Tenderness, Yes AC Joint Tenderness, No Clavicle Tenderness, No Normal Range of Motion in Shoulder, No Shoulder Deformity Arm Exam: No Arm/Humerus Tenderness, No Arm Deformity Elbow: No Elbow Tenderness, No Normal Range of Motion in Elbow, No Elbow Deformity Forearm: No Forearm Tenderness, No Forearm Deformity, No Pain with Pronation, No Pain with Supination Wrist: Yes Normal ROM in Wrist, No Wrist Tenderness, No Wrist Deformity, No Snuffbox Tenderness, No Pain with Axial Thumb Compression Hand: Yes Normal ROM in Digit(s), No Hand Tenderness, No Hand Deformity, No Digit Tenderness, No Digit(s) Deformity, No Tendon Dysfunction CMS Exam: No Broken Skin, No Normal Distal Pulses, No Normal Capillary Refill, No Normal Distal Sensation ED Course Vital Signs 07/25/21 10:09 Temperature 97.3 F L Pulse Rate 81 Respiratory 20 Rate Blood Pressure 131/71 [Left] O2 Sat by Pulse 99 Oximetry ED Medical Decision Making - Medical Decision Making 61-year-old -Maur[place] male presents to the emergency room for chronic right shoulder pain. Patient states he has been taking gabapentin Robaxin and Tylenol and arthritis. 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 Patient reports his pain is worse when he tries to bring his arm down from having it lifted up. He denies any recent trauma. No fevers no chills. Critical care attestation.: If time is entered above; I have spent that time in minutes in the direct care of this critically ill patient, excluding procedure time. ED Disposition Clinical Impression: Chronic pain in right shoulder Disposition: HOME / SELF CARE / HOMELESS Is pt being admited?: No Does the pt Need Aspirin: No Condition: Stable Instructions: Shoulder Pain, [id number] Additional Instructions: Please take pain medication as prescribed. Do not operate heavy machinery while taking pain medicine. Is very important you follow-up with a orthopedic provider. As you may need further studies. Prescriptions: traMADoL [Ultram 50 MG tab] 50 mg PO Q6HR PRN #12 tablet PRN Reason: Pain Referrals: PRIMARY CARE, [Primary Care Provider] - 3-5 Days TRUDY MUKHERJEE MD [Staff Physician] - 3-5 Days Time of Disposition: 10:45
== END 2021-07-25 10:58 | disposition home or self-care (01) ==
LOC: ED 10:03
DX: M25.511 Pain in right shoulder (principal); G89.29 Other chronic pain; F17.200 Nicotine dependence, unspecified, uncomplicated; Z90.49 Acquired absence of other specified parts of digestive tract; I10 Essential (primary) hypertension; E11.8 Type 2 diabetes mellitus with unspecified complications; F41.9 Anxiety disorder, unspecified
CPT/HCPCS: 99281

== ENCOUNTER 2022-06-02 17:12 | Emergency (ER) | payer MEDICAID ==
[2022-06-02 17:37] VITALS: BP 122/63
[2022-06-02] MEDS ORDERED: dexAMETHasone 20 MG/5 ML VIAL IM ONE (19:26)
[2022-06-02] MEDS ORDERED: KETOROLAC 30 MG/1 ML INJ IM ONE (19:26)
--- NOTE | 2022-06-02 20:17 | Emergency Department Report ---
ED Back Pain/Injury HPI - General Chief Complaint: Back Pain/Injury Stated Complaint: LOWER BACK PAIN/LEG PAIN Time Seen by Provider: 06/02/22 19:26 Source: patient Limitations: No Limitations - History of Present Illness Initial Comments: Patient 62-year-old male with history of hypertension and sciatica who presents for right-sided low back pain radiating to right lower extremity x3 days. Patient denies any fall injury or trauma. Pain is rated at 4/10 pain is exacerbated by bending twisting and reaching. There is no numbness no tingling no paralysis. There is been no loss or decrease in bowel or bladder function. Patient drove self to ED tonight patient appears nontoxic patient is ambulatory with steady gait at this time. Usual pain relief is NSAIDs and rest. However patient is on medication at this time. She does have a primary care doctor MD Complaint: back pain - Related Data Home Medications Medication Instructions Recorded Confirmed Last Taken AtorvaSTATin [Lipitor] 40 mg PO QHS 03/07/19 03/10/21 03/16/21 Escitalopram [Lexapro] 10 mg PO DAILY 03/07/19 03/10/21 03/16/21 Gabapentin [Neurontin] 600 mg PO DAILY 03/07/19 03/10/21 03/16/21 Glimepiride [Amaryl] 4 mg PO QAM 03/07/19 03/10/21 03/16/21 Metformin HCl [metFORMIN] 1,000 mg PO DAILY 03/07/19 03/10/21 03/16/21 QUEtiapine [SEROquel] 200 mg PO DAILY 03/07/19 03/10/21 03/16/21 lamoTRIgine [Lamictal] 50 mg PO BID 03/07/19 03/10/21 03/16/21 lisinopriL [Zestril TAB] 40 mg PO QDAY 03/07/19 03/10/21 03/16/21 Finasteride [Proscar] 5 mg PO DAILY 07/30/20 03/10/21 03/16/21 Tamsulosin [Flomax] 0.4 mg PO QDAY 07/30/20 03/10/21 03/16/21 Previous Rx's Medication Instructions Recorded Last Taken Type traMADoL [Ultram 50 MG tab] 50 mg PO Q6HR PRN #12 tablet 07/25/[address] [Sharon Alvares] 75 mg PO TID PRN #30 tab 06/02/22 Unknown Rx methOCARBAMOL [Robaxin TAB] 750 mg PO BID PRN #20 tab 06/02/22 Unknown Rx methylPREDNISolone [Medrol 4MG 4 mg PO DAILY #1 pack 06/02/22 Unknown Rx DOSEPAK (21 tabs)] Allergies Allergy/AdvReac Type Severity Reaction Status Date / Time No Known Allergies Allergy Verified 03/25/20 16:23 ED Review of Systems ROS: Stated complaint: LOWER BACK PAIN/LEG PAIN Other details as noted in HPI Constitutional: denies: chills, fever Eyes: denies: eye pain, eye discharge, vision change ENT: denies: ear pain, throat pain Respiratory: denies: cough, shortness of breath, wheezing Cardiovascular: denies: chest pain, palpitations Endocrine: no symptoms reported Gastrointestinal: as per HPI Genitourinary: denies: urgency, dysuria Musculoskeletal: back pain Skin: denies: rash, lesions Neurological: denies: headache, weakness, numbness, paresthesias, confusion, vertigo Psychiatric: denies: anxiety, depression Hematological/Lymphatic: denies: easy bleeding, easy bruising ED Past Medical Hx - Past Medical History Hx Hypertension: Yes (X 8 YRS) Hx Diabetes: Yes Hx GERD: Yes (TAKES OTC MEDS NEEDED) Hx Renal Disease: Yes (ARF secondary to stones, BPH) Hx Arthritis: Yes (SHOULDERS,LOW BACK. S/P ACF) Hx Kidney Stones: Yes Hx Psychiatric Treatment: Yes (anxiety) Hx Tuberculosis: Yes (POSITIVE SKIN TEST,TOOK TX, NEG CXR -20 YRS AGO) Hx HIV: No Additional medical history: high cholesterol. BPH - Surgical History Hx Cholecystectomy: Yes Additional Surgical History: Cervical spine surgery - Social History Smoking Status: Unknown if ever smoked Substance Use Type: None - Medications Home Medications: Home Medications Medication Instructions Recorded Confirmed Last Taken Type AtorvaSTATin [Lipitor] 40 mg PO QHS 03/07/19 03/10/21 03/16/21 History Escitalopram [Lexapro] 10 mg PO DAILY 03/07/19 03/10/21 03/16/21 History Gabapentin [Neurontin] 600 mg PO DAILY 03/07/19 03/10/21 03/16/21 History Glimepiride [Amaryl] 4 mg PO QAM 03/07/19 03/10/21 03/16/21 History Metformin HCl [metFORMIN] 1,000 mg PO DAILY 03/07/19 03/10/21 03/16/21 History QUEtiapine [SEROquel] 200 mg PO DAILY 03/07/19 03/10/21 03/16/21 History lamoTRIgine [Lamictal] 50 mg PO BID 03/07/19 03/10/21 03/16/21 History lisinopriL [Zestril TAB] 40 mg PO QDAY 03/07/19 03/10/21 03/16/21 History Finasteride [Proscar] 5 mg PO DAILY 07/30/20 03/10/21 03/16/21 History Tamsulosin [Flomax] 0.4 mg PO QDAY 07/30/20 03/10/21 03/16/21 History traMADoL [Ultram 50 MG tab] 50 mg PO Q6HR PRN #12 tablet 07/25/[address] [Voltaren Dr] 75 mg PO TID PRN #30 tab 06/02/22 Unknown Rx methOCARBAMOL [Robaxin TAB] 750 mg PO BID PRN #20 tab 06/02/22 Unknown Rx methylPREDNISolone [Medrol 4MG 4 mg PO DAILY #1 pack 06/02/22 Unknown Rx DOSEPAK (21 tabs)] ED Physical Exam - General Limitations: No Limitations General appearance: alert, in no apparent distress - Head Head exam: Present: normocephalic, normal inspection - Eye Eye exam: Present: PERRL, EOMI Pupils: Present: normal accommodation - ENT ENT exam: Present: mucous membranes moist - Neck Neck exam: Present: normal inspection, full ROM. Absent: tenderness, lymphadenopathy - Respiratory Respiratory exam: Present: normal lung sounds bilaterally. Absent: respiratory distress, wheezes - Cardiovascular Cardiovascular Exam: Present: regular rate, normal rhythm, normal heart sounds. Absent: systolic murmur, diastolic murmur, rubs, gallop - GI/Abdominal GI/Abdominal exam: Present: soft, normal bowel sounds. Absent: distended, tenderness - Rectal Rectal exam: Present: deferred - Extremities Exam Extremities exam: Present: normal inspection, full ROM, normal capillary refill. Absent: pedal edema - Back Exam Back exam: Present: normal inspection, full ROM, muscle spasm. Absent: paraspinal tenderness, vertebral tenderness - Expanded Back Exam Expanded Back exam: Absent: saddle anesthesia Back exam: Positive Straight Leg Raise: Right, Negative Straight Leg Raising: Left - Neurological Exam Neurological exam: Present: alert, oriented X3, CN II-XII intact, normal gait, reflexes normal. Absent: motor sensory deficit - Expanded Neurological Exam Expanded Patient oriented to: Present: person, place, time Speech: Present: fluid speech Motor strength exam: RUE: 5, LUE: 5, RLE: 5, LLE: 5 DTR: knee (R): 1+, knee (L): 1+ Best Eye Response ([place]): (4) open spontaneously Best Motor Response ([place]): (6) obeys commands Best Verbal Response ([place]): (5) oriented [place] Total: 15 - Psychiatric Psychiatric exam: Present: normal affect, normal mood - Skin Skin exam: Present: warm, dry, intact, normal color. Absent: rash ED Course Vital Signs 06/02/22 17:31 Temperature 97.1 F L Pulse Rate 79 Respiratory 18 Rate Blood Pressure 122/63 O2 Sat by Pulse 98 Oximetry ED Medical Decision Making - Medical Decision Making Pain is improved with medications given in ED. Patient is amatory in ED without increased pain. Gait is steady at this time. Plan DC to home, NSAIDs, moist heat therapy, back stretches, follow-up primary care doctor in 2 to 3 days. Patient verbalized agreement and understanding with discharge plan. Patient DC'd home in stable condition at this time. Critical care attestation.: If time is entered above; I have spent that time in minutes in the direct care of this critically ill patient, excluding procedure time. ED Disposition Clinical Impression: Low back strain Qualifiers: Encounter type: initial encounter Qualified Code(s): S39.012A - Strain of muscle, fascia and tendon of lower back, initial encounter Disposition: HOME / SELF CARE / HOMELESS Is pt being admited?: No Does the pt Need Aspirin: No Condition: Stable Instructions: Low Back Sprain or Strain Rehab-SportsMed Additional Instructions: Take medications as prescribed, moist heat therapy as directed. Back exercises as directed. Follow-up with your doctor in 2 to 3 days. Return to emergency department should symptoms worsen. Prescriptions: methylPREDNISolone [Medrol 4MG DOSEPAK (21 tabs)] 4 mg PO DAILY #1 pack methOCARBAMOL [Robaxin TAB] 750 mg PO BID PRN #20 tab PRN Reason: Muscle Spasm Diclofenac Dr [Voltaren ] 75 mg PO TID PRN #30 tab PRN Reason: Pain Referrals: KILEY AUGUSTINE MD [Staff Physician] - 3-5 Days Forms: Work/School Release Form(ED) Time of Disposition: 20:17
== END 2022-06-02 20:30 | disposition home or self-care (01) ==
LOC: ED 17:12
DX: S39.012A Strain of muscle, fascia and tendon of lower back, initial encounter (principal); I10 Essential (primary) hypertension; E11.9 Type 2 diabetes mellitus without complications; M19.90 Unspecified osteoarthritis, unspecified site; N28.9 Disorder of kidney and ureter, unspecified; K21.9 Gastro-esophageal reflux disease without esophagitis; N20.0 Calculus of kidney; F41.9 Anxiety disorder, unspecified; A15.9 Respiratory tuberculosis unspecified; Z79.899 Other long term (current) drug therapy; X50.1XXA Overexertion from prolonged static or awkward postures, initial encounter; Y93.89 Activity, other specified; Y92.89 Other specified places as the place of occurrence of the external cause; Y99.8 Other external cause status
CPT/HCPCS: 96372; 99282; J1100; J1885